=== PATIENT | male | born 1965 | race Two or more races ===

== ENCOUNTER 2024-06-20 22:40 | Inpatient (IN) | payer MEDICARE, MEDICAID ==
[~2024-06-20] VITALS: Ht 182.9 cm; Wt 103.3 kg
[2024-06-21] VITALS (33 sets, daily range): BP systolic 78–151; BP diastolic 44–85; PULSE 79–112; RESP 11–26; TEMP 97.6; O2SAT 89–100
--- NOTE | 2024-06-21 00:32 | DVH ---
EXAM: CT HEAD WITHOUT CONTRAST INDICATION: gen weak TECHNIQUE: CT of the head without intravenous contrast. Radiation Dose : 1. Head: CT Dose: CTDI volume is 51.87 mGy. Dose-length product is 1039.14 mGy*cm The dose indicators for CT are the volume Computed Tomography (CT) Dose Index (CTDIvol) and the Dose Length Product (DLP), and are measured in units of mGy and mGy-cm, respectively. These indicators are not patient dose, but values generated from the CT scanner acquisition factors. The report includes radiation exposure data for exposures received during this examination. COMPARISON: None FINDINGS: There is no evidence of acute intracranial hemorrhage, extra-axial collection, mass effect, midline s hift, herniation or hydrocephalus. Increased prominence of the ventricles, sulci and cisterns is consistent with sequelae of atrophic co rtical volume loss. The healy-white differentiation is intact. Moderate diffuse confluent periventricular and subcortical white matter hypoattenuation is nonspecifi c but may be related to small vessel ischemic disease. The visualized paranasal sinuses and mastoid air cells are clear. The surrounding soft tissues and osseous structures are unremarkable. IMPRESSION: 1. No acute intracranial abnormality. 2. Chronic sequelae of small vessel ischemic disease and atrophic cortical volume loss. Radiation optimization: All CT scans at this facility use at least one of these dose optimization tariq hniques: automated exposure control mA and/or kV adjustment per patient size (includes targeted exam s where dose is matched to clinical indication) or iterative reconstruction.
[2024-06-21 01:09] LABS: Albumin 4.3 g/dL (3.2-4.8); Anion Gap 16 (5-15); Calcium 9.3 mg/dL (8.7-10.4); Chloride 98 mmol/L (98-107); Glucose 97 mg/dL (74-106)
[2024-06-21 01:11] LABS: Blood Urea Nitrogen 74 mg/dL (9-23); Carbon Dioxide 18 mmol/L (20-31); Sodium 132 mmol/L (136-145)
[2024-06-21] MEDS: NEOMYCIN-BACITRACIN-POLYM UNITDOSE PKG TOP OINT TOP ONE (01:11)
[2024-06-21 01:12] LABS: Alanine Aminotransferase < 9 U/L (7-40); Alkaline Phosphatase 405 U/L (46-116); Aspartate Aminotransferase 8 U/L (13-40); Bilirubin, Total 0.2 mg/dL (0.2-1.0)
[2024-06-21 01:31] LABS: Basophils # (auto) 0.1 10 ^3/uL (0-0.2); Basophils % (auto) 1.2 % (0.0-2.0); Eosinophils # (auto) 0.4 10 ^3/uL (0-0.8); Eosinophils % (auto) 4.1 % (0.0-7.0); Hematocrit 59.3 % (41.0-53.0); Hemoglobin 19.5 g/dL (13.5-17.5); Lymphocytes # (auto) 1.4 10 ^3/uL (0.4-5.4); Lymphocytes % (auto) 15.7 % (10.0-50.0); Mean Corpuscular Hemoglobin 27.8 pg (28.0-32.0); Mean Corpuscular Hgb Conc. 32.9 g/dL (32.0-36.0); Mean Corpuscular Volume 84.6 fL (80.0-100.0); Monocytes % (auto) 11.8 % (0.0-12.0); Neutrophils # (auto) 5.9 10 ^3/uL (1.6-8.6); Neutrophils % (auto) 67.2 % (37.0-80.0); Nucleated Red Blood Cells % 0.9 %; Platelet Count (auto) 133 10^3/uL (140-450); Red Blood Cells 7.01 10^6/uL (4.5-5.90); Red Cell Distribution Width 18.6 % (11.8-14.3); White Blood Cell 8.8 10^3/uL (4.4-10.8)
[2024-06-21 01:56] LABS: Large Platelets FEW; Platelet Estimate Decreased
--- NOTE | 2024-06-21 02:05 | ED.PDOC ---
History of Present Illness HPI Comments 58-year-old male complaining of generalized weakness. States started this afternoon. He went to stand and make himself food but he could not get up. States he felt some mild weakness yesterday but it was not as bad today. States since this afternoon he has been not been able to bear weight and stand up on his own. Patient was report a history of chronic kidney failure and does receive dialysis two days he was in Saturdays. Chief Complaint: General Weakness Time Seen by MD: 23:19 Reviewed Notes: Nurses Notes Information Source: Patient Mode of Arrival: EMS Past Medical History PAST MEDICAL HISTORY: DM, ESRD Constitutional: reports: fatigue, weakness; denies: chills, diaphoresis, fever, malaise, sweats, others EENTM: denies: blurred vision, double vision, ear bleeding, ear discharge, ear drainage, ear pain, ear ringing, eye pain, eye redness, hearing loss, mouth pain, mouth swelling, nasal discharge, nose bleeding, nose congestion, nose pain, photophobia, tearing, throat pain, throat swelling, voice changes, others Respiratory: denies: cough, hemoptysis, orthopnea, SOB at rest, shortness of breath, SOB with excertion, stridor, wheezing, others Cardiovascular: denies: chest pain, dizzy spells, diaphoresis, Dyspnea on exertion, edema, irregular heart beat, left arm pain, lightheadedness, palpit ations, PND, syncope, others Gastrointestinal: denies: abdomen distended, abdominal pain, blood streaked b owels, constipated, diarrhea, dysphagia, difficulty swallowing, hematemesis, melena, nausea, poor appetite, poor fluid intake, rectal bleeding, rectal pain, vomiting, others Genitourinary: denies: burning, dysuria, flank pain, frequency, hematuria, incontinence, penile discharge, penile sore, pain, testicle pain, testicle swelling, urgency, others Neurological: denies: dizziness, fainting, headache, left sided numbness, left sided weakness, numbness, paresthesia, pre-existing deficit, right sided numbness, right sided weakness, seizure, speech problems, tingling, tremors, weakness, others Musculoskeletal: denies: back pain, gout, joint pain, joint swelling, muscle pain, muscle stiffness, neck pain, others Integumetry: denies: bruises, change in color, change in hair/nails, dryness, laceration, lesions, lumps, rash, wounds, others Allergic/Immunocompromised: denies: Difficulty Healing, Frequent Infections, Hives, Itching, others Hematologic/Lymphatic: denies: anemia, blood clots, easy bleeding, easy bruisi ng, swollen glands, others Endocrine: denies: excessive hunger, excessive sweating, excessive thirst, exce ssive urination, flushing, intolerance to cold, intolerance to heat, unexplained weight gain, unexplained weight loss, others Psychiatric: denies: anxiety, bipolar disorder, depression, hopeless, panic disorder, schizophrenia, sleepless, suicidal, others Physical Exam General Appearance: Moderate Distress, Obese HEENT: Normal ENT Inspection, Pharynx Normal, TMs Normal Neck: Full Range of Motion, Non-Tender, Normal, Normal Inspection Respiratory: Chest Non-Tender, Lungs Clear, No Accessory Muscle Use, No Respiratory Distress, Normal Breath Sounds Cardiovascular: No Edema, No JVD, No Murmur, No Gallop, Normal Peripheral Pulses, Regular Rate/Rhythm Breast Exam: Deferred Gastrointestinal: No Organomegaly, Normal Bowel Sounds, Soft Genitalia: Deferred Pelvic: Deferred Rectal: Deferred Extremities: Decreased range of motion, Inflammation, No calf tenderness, Swelling Musculoskeletal : Apperance: Normal Neurologic: Alert, eligibility analyst II-XII nml as Tested, No Motor Deficits, Normal Affect, Normal Mood, No Sensory Deficits Cerebellar Function: Normal Reflexes: Normal Skin: Dry, Normal Color, Warm Lymphatic: No Adenopathy Was a procedure done? Was a procedure done?: No Differential Dx Considerations may include: Fluid overload, hyperkalemia, high believe make sure, chronic blood loss anemia, X-Ray, Labs, Meds, VS Vital Signs Date Time Temp Pulse Resp B/P (MAP) Pulse Ox O2 Delivery O2 Flow Rate FiO2 06/21/24 00:25 98.9 99 20 175/94 (121) 96 98.9 06/21/24 00:25 99 20 96 Room Air 06/20/24 22:52 99.0 103 18 175/83 (113) 92 99.0 06/20/24 22:43 103 Lab Test 06/21/24 00:39 Range/Units White Blood Count 8.8 4.4-10.8 10^3/uL Red Blood Count 7.01 H 4.5-5.90 10^6/uL Hemoglobin 19.5 H 13.5-17.5 g/dL Hematocrit 59.3 H 41.0-53.0 % Mean Corpuscular Volume 84.6 80.0-100.0 fL Mean Corpuscular Hemoglobin 27.8 L 28.0-32.0 pg Mean Corpuscular Hemoglobin Concent 32.9 32.0-36.0 g/dL Red Cell Distribution Width 18.6 H 11.8-14.3 % Platelet Count 133 L 140-450 10^3/uL Mean Platelet Volume 8.8 6.9-10.8 fL Neutrophils (%) (Auto) 67.2 37.0-80.0 % Lymphocytes (%) (Auto) 15.7 10.0-50.0 % Monocytes (%) (Auto) 11.8 0.0-12.0 % Eosinophils (%) (Auto) 4.1 0.0-7.0 % Basophils (%) (Auto) 1.2 0.0-2.0 % Neutrophils # (Auto) 5.9 1.6-8.6 10 ^3/uL Lymphocytes # (Auto) 1.4 0.4-5.4 10 ^3/uL Monocytes # (Auto) 1.0 0-1.3 10 ^3/uL Eosinophils # (Auto) 0.4 0-0.8 10 ^3/uL Basophils # (Auto) 0.1 0-0.2 10 ^3/uL Nucleated Red Blood Cells 0.9 % Platelet Estimate Decreased Large Platelets Few Sodium Level 132 L 136-145 mmol/L Potassium Level 7.0 *H 3.5-5.1 mmol/L Chloride Level 98 98-107 mmol/L Carbon Dioxide Level 18 L 20-31 mmol/L Anion Gap 16 H 5-15 Blood Urea Nitrogen 74 H 9-23 mg/dL Creatinine 14.82 *H 0.700-1.30 mg/dL Glomerular Filtration Rate Calc 3 >90 mL/min BUN/Creatinine Ratio 5.0 L 10.0-20.0 Serum Glucose 97 74-106 mg/dL Calcium Level 9.3 8.7-10.4 mg/dL Total Bilirubin 0.2 0.2-1.0 mg/dL Aspartate Amino Transferase (AST) 8 L 13-40 U/L Alanine Aminotransferase (ALT) < 9 7-40 U/L Alkaline Phosphatase 405 H 46-116 U/L Ammonia 27 11-32 umol/L B-Type Natriuretic Peptide 75.92 0-100 pg/mL Total Protein 8.0 5.7-8.2 g/dL Albumin 4.3 3.2-4.8 g/dL Current Medications Medications (Trade) Dose Ordered Sig/Jenae Route Start Time Stop Time Status Last Admin Neomycin/ Polymyxin/ Bacitracin (Triple Antibiotic) 1 applic ONCE ONCE TOP 06/21/24 01:15 06/21/24 01:16 DC 06/21/24 01:11 X-Ray, Labs, Meds, VS Comment Patient will be admitted for end-stage renal disease Recommend dialysis tomorrow Imaging: X-rays and CT scans were reviewed and interpreted by this provider, imaging shows no fractures and no pathological disease. Pending radiology review. Laboratory: Labs reviewed and interpreted by this provider. Patient has prior medical visits reviewed. Med reconciliation performed Vital signs reviewed Time of 1ST Reevaluation: 02:05 Reevaluation 1ST: Unchanged Patient Education/Counseling: Diagnosis, Treatment Family Education/Counseling: Diagnosis, Treatment Departure 1 Departure Time of Disposition: 02:04 Impression: Primary Impression: End stage renal disease Additional Impressions: Hyperkalemia Generalized weakness Disposition: ADMITTED INPATIENT Condition: Stable Discharged With: Self Critical Care Note Critical Care Time?: No Stability Stability form required: No Heart Score Heart Score: Heart Score Response (Comments) Value History N/A 0 EKG N/A 0 Age N/A 0 Risk Factors N/A 0 Troponin N/A 0 Total 0 MILTON GAYTAN June 21, 2024 02:05
[2024-06-21] MEDS: SODIUM BICARB 8.4% 50Meq/50ml SYR INJ IV ONE (04:45)
[2024-06-21] MEDS ORDERED: NITROGLYCERIN 0.4 MG SL TAB SL PRN (04:45)
[2024-06-21] MEDS ORDERED: ONDANSETRON HCL 4 MG/2 ML VIAL IV PRN (04:45)
[2024-06-21] MEDS: InsuLIN REG 1unit/0.01ml Soln (100units/ml) IV ONE ×2 (04:45→21:45)
[2024-06-21] MEDS ORDERED: DEXTROSE (50%) 50ML SYRG IV PRN (04:45)
[2024-06-21] MEDS ORDERED: MORPHINE SULFATE INJ 2 MG/ml SYRG IV PRN (04:45)
[2024-06-21] MEDS: ALBUTEROL SULF 2.5 MG/0.5ML(0.5%) NEB SOLN ONE (04:55)
--- NOTE | 2024-06-21 04:56 | DVHHP2 ---
History of Present Illness Reason for Visit: Generalized weakness History of Present Illness 58-year-old male presents for evaluation of generalized weakness. Patient reports having severe fatigue and weakness for the past one day. Patient was unable to get out of bed to cook breakfast. Denies chest pain or palpitations. He is dialysis dependent was last dialyzed on Thursday. Denies any other acute complaints. Past Medical History Hypertension, diabetes mellitus, end-stage renal disease Past Surgical History Left AV fistula Family History Noncontributory Smoke: No ALCOHOL: none Drugs: None Lives: with Family Review of Systems Review of Systems Review of systems are currently negative otherwise addressed in HPI. Medications Current Medications Medications Dose Ordered Sig/Jenae Route Start Time Stop Time Status Last Admin Dose Admin Sevelamer HCl 800 mg TIDWM PO 06/21/24 08:00 UNV Hydralazine HCl 50 mg Q12HR PO 06/21/24 10:00 UNV Metoprolol Tartrate 25 mg BID PO 06/21/24 10:00 UNV Diagnostic Test (Pha) 1 strip Q6HR 06/21/24 06:00 UNV Insulin Human Regular Q6HR SC 06/21/24 06:00 UNV Dextrose 50 ml UD PRN IV 06/21/24 04:45 UNV Ondansetron HCl 4 mg Q4HP PRN IV 06/21/24 04:45 UNV Nitroglycerin 0.4 mg Q5MINP PRN SL 06/21/24 04:45 UNV Morphine Sulfate 2 mg Q30M PRN IV 06/21/24 04:45 UNV Exam Vital Signs Vital Signs Date Time Temp Pulse Resp B/P (MAP) Pulse Ox O2 Delivery O2 Flow Rate FiO2 06/21/24 00:25 98.9 99 20 175/94 (121) 96 98.9 06/21/24 00:25 Room Air Exam Gen: 58-year-old male in mild distress Skin: Warm, dry, normal color and texture, no rash. HEENT: Normocephalic atraumatic, mucous membranes moist and pink. Neck: Cervical and supraclavicular nodes normal without enlargement, trachea is midline, thyroid gland is normal without masses. Pulmonary: Clear to auscultation and percussion bilaterally. Cardiac: Regular rate and rhythm. No murmur Abdomen: Soft, nontender, nondistended, bowel sounds present all 4 quadrants, no guarding, no rigidity, no organomegaly. Extremities: No cyanosis, clubbing, no edema Neuro: Cranial nerves II through XII grossly intact, normal affect and speech, no focal motor deficits. Labs/Xrays ORDERING PHYSICIAN: MILTON GAYTAN PROCEDURE(s): HWOCT - HEAD WITHOUT CONTRAST REASON: gen zamudio ORDER NUMBER(s): [id number], ACCESSION NUMBER(s): [id number] EXAM: CT HEAD WITHOUT CONTRAST INDICATION: gen zamudio TECHNIQUE: CT of the head without intravenous contrast. Radiation Dose : 1. Head: CT Dose: CTDI volume is 51.87 mGy. Dose-length product is 1039.14 mGy*cm The dose indicators for CT are the volume Computed Tomography (CT) Dose Index (CTDIvol) and the Dose Length Product (DLP), and are measured in units of mGy and mGy-cm, respectively. These indicators are not patient dose, but values generated from the CT scanner acquisition factors. The report includes radiation exposure data for exposures received during this examination. COMPARISON: None FINDINGS: There is no evidence of acute intracranial hemorrhage, extra-axial collection, mass effect, midline shift, herniation or hydrocephalus. Increased prominence of the ventricles, sulci and cisterns is consistent with sequelae of atrophic cortical volume loss. The healy-white differentiation is intact. Moderate diffuse confluent periventricular and subcortical white matter hypoattenuation is nonspecific but may be related to small vessel ischemic disease. The visualized paranasal sinuses and mastoid air cells are clear. The surrounding soft tissues and osseous structures are unremarkable. IMPRESSION: 1. No acute intracranial abnormality. 2. Chronic sequelae of small vessel ischemic disease and atrophic cortical volume loss. Radiation optimization: All CT scans at this facility use at least one of these dose optimization techniques: automated exposure control mA and/or kV adjustment per patient size (includes targeted exams where dose is matched to clinical indication) or iterative reconstruction. Labs Test 06/21/24 00:39 Range/Units White Blood Count 8.8 4.4-10.8 10^3/uL Red Blood Count 7.01 H 4.5-5.90 10^6/uL Hemoglobin 19.5 H 13.5-17.5 g/dL Hematocrit 59.3 H 41.0-53.0 % Mean Corpuscular Volume 84.6 80.0-100.0 fL Mean Corpuscular Hemoglobin 27.8 L 28.0-32.0 pg Mean Corpuscular Hemoglobin Concent 32.9 32.0-36.0 g/dL Red Cell Distribution Width 18.6 H 11.8-14.3 % Platelet Count 133 L 140-450 10^3/uL Mean Platelet Volume 8.8 6.9-10.8 fL Neutrophils (%) (Auto) 67.2 37.0-80.0 % Lymphocytes (%) (Auto) 15.7 10.0-50.0 % Monocytes (%) (Auto) 11.8 0.0-12.0 % Eosinophils (%) (Auto) 4.1 0.0-7.0 % Basophils (%) (Auto) 1.2 0.0-2.0 % Neutrophils # (Auto) 5.9 1.6-8.6 10 ^3/uL Lymphocytes # (Auto) 1.4 0.4-5.4 10 ^3/uL Monocytes # (Auto) 1.0 0-1.3 10 ^3/uL Eosinophils # (Auto) 0.4 0-0.8 10 ^3/uL Basophils # (Auto) 0.1 0-0.2 10 ^3/uL Nucleated Red Blood Cells 0.9 % Platelet Estimate Decreased Large Platelets Few Sodium Level 132 L 136-145 mmol/L Potassium Level 7.0 *H 3.5-5.1 mmol/L Chloride Level 98 98-107 mmol/L Carbon Dioxide Level 18 L 20-31 mmol/L Anion Gap 16 H 5-15 Blood Urea Nitrogen 74 H 9-23 mg/dL Creatinine 14.82 *H 0.700-1.30 mg/dL Glomerular Filtration Rate Calc 3 >90 mL/min BUN/Creatinine Ratio 5.0 L 10.0-20.0 Serum Glucose 97 74-106 mg/dL Calcium Level 9.3 8.7-10.4 mg/dL Total Bilirubin 0.2 0.2-1.0 mg/dL Aspartate Amino Transferase (AST) 8 L 13-40 U/L Alanine Aminotransferase (ALT) < 9 7-40 U/L Alkaline Phosphatase 405 H 46-116 U/L Ammonia 27 11-32 umol/L B-Type Natriuretic Peptide 75.92 0-100 pg/mL Total Protein 8.0 5.7-8.2 g/dL Albumin 4.3 3.2-4.8 g/dL Assessment/Plan Assessment/Plan Assessment End-stage renal disease, dialysis dependent Severe hyperkalemia Diabetes mellitus Accelerated hypertension Plan Admit the patient to [facility] to the hospitalist Hypokalemia protocol Nephrology consultation Resume home medications Continue treatment per orders Total critical care time excluding procedures performed this 55 minutes. Plan discussed with: Patient My Orders Orders - GEREMIAS MANLEY M AGACNP Procedure Category Date Status Time Sevelamer (Renagel) PHA 06/21/24 Logged 08:00 Hydralazine Hcl PHA 06/21/24 Logged Tablet (Apresoline 10:00 Metoprolol Tartrate PHA 06/21/24 Logged Tablet (Lopressor Ta 10:00 Basic Metabolic Panel LAB 06/22/24 Verified 04:00 Consistent DIET 06/21/24 Transmitted Carb(Ccho)Diabetes Breakfast Glucose Blood PHA 06/21/24 Logged (Accu-Chek Comfort 06:00 Insulin R (Human) PHA 06/21/24 Logged (Insulin R) 06:00 Dextrose 50% Syringe PHA 06/21/24 Logged 04:45 Admit ADMIT 06/21/24 Transmitted 04:40 Ondansetron Hcl PHA 06/21/24 Logged (Zofran) 04:45 Condition: Serious EVANGELISTA 06/21/24 In Process 04:40 Bedrest With Bathroom EVNAGELISTA 06/21/24 In Process Privileg 04:40 Nitroglycerin PHA 06/21/24 Logged Sublingual (Ntrostat 04:45 Morphine Sulfate PHA 06/21/24 Logged Injection 04:45 Stat Ekg For Chest EVANGELISTA 06/21/24 In Process Pain 04:40 Notify Md Of Changes EVANGELISTA 06/21/24 In Process From Base 04:40 Rubber Stamps And Dies Supervisor For EVANGELISTA 06/21/24 In Process 24 Hours 04:40 Emergency Dysrhythmia EVANGELISTA 06/21/24 In Process Protocol 04:40 Rhythm Strips Once EVANGELISTA 06/21/24 In Process Every Shift 04:40 Oxygen By Nasal RT 06/21/24 Transmitted Cannula 04:40 *Dr. Hazel Terry -Da CONS 06/21/24 Verified Mayra 04:52 Date of Service: June 21, 2024 Billing Provider: GEREMIAS MANLEY Common Visit Codes: [id number] CARE 30-74 MIN GEREMIAS MANLEY June 21, 2024 04:56
[2024-06-21] MEDS: CALCIUM GLUC 1,000mg/50ml-NS 50 ML IV ONE ×2 (05:58→22:22)
[2024-06-21] MEDS: SODIUM ZIRCONIUM CYCL 10 GM PAK PO ONE ×2 (05:59→22:22)
[2024-06-21] MEDS: InsuLIN REG 1unit/0.01ml Soln (100units/ml) SC SCH (06:00)
[2024-06-21] MEDS: DEXTROSE (50%) 50ML SYRG IV ONE ×2 (06:02→22:21)
[2024-06-21] MEDS: ACCU-CHEK COMFORT CURVE STRIP VI SCH (06:08)
--- NOTE | 2024-06-21 06:18 | ECG ---
[facility] Test Date: 2024-06-20 Test Time: 22:43:05 Pat Name: LULU SCOTT Department: ED Room: 0222T Gender: M Furnace Filler: : 1965 Requested By: EMERGENCY EMERGENCY Order Number: [id number] Reading MD: Abhijit Harris Measurements Intervals Moro Rate: 103 P: 54 MD: 179 QRS: 110 QRSD: 106 T: 28 QT: 347 QTc: 454 Interpretive Statements Sinus tachycardia Left posterior fascicular block Inferior infarct, old Anterior infarct, old Electronically Signed On 06-23-2024 20:48:45 PDT by Abhijit Harris Please click the below link to view image of tracing.
[2024-06-21] MEDS: D5W/SOD CHLO 0.9% 1,000 ML IV ONE (07:30)
[2024-06-21] MEDS: ALBUTEROL SULF 2.5 MG/0.5ML(0.5%) NEB SOLN NEB ONE (07:30)
[2024-06-21] MEDS: SEVELAMER 800 MG TAB PO SCH (08:54)
[2024-06-21] MEDS: METOPROLOL TARTRATE 25 MG TAB PO SCH (09:44)
[2024-06-21] MEDS: hydrALAZINE HCL 25 MG TAB PO SCH (09:44)
--- NOTE | 2024-06-21 15:25 | DVHINCON2 ---
Date of service: June 21, [address] Paulson. Reason for Consultation End-stage renal disease History of Present Illness 58-year-old patient with significant history of end-stage renal disease on hemodialysis Thursday with last dialysis on Thursday who has been compliant with treatment and is unsure of what he ate that caused symptoms of severe generalized weakness unable to ambulate found to have hyperkalemia with seven in the emergency room. He has other comorbidities include hypertension, diabetes type 2, hyperlipidemia, obesity. He denied chest pain orthopnea PND or leg swelling. His last meal was a egg sandwich. Labs revealed hyperkalemia, Hyponatremia. Past Medical History Hypertension, end-stage renal disease, hyperlipidemia, Diabetes type 2. Past Surgical History Dialysis access creation. Allergies: Coded Allergies: NO KNOWN ALLERGIES (Unverified , 06/21/24) Current Medications Current Medications Medications (Trade) Dose Ordered Sig/Jenae Route PRN Reason Start Time Stop Time Status Last Admin Sevelamer HCl (Renagel) 800 mg TIDWM PO 06/21/24 08:00 06/21/24 13:30 Hydralazine HCl (Apresoline Tablet) 50 mg Q12HR PO 06/21/24 10:00 06/21/24 09:44 Metoprolol Tartrate (Lopressor Tablet) 25 mg BID PO 06/21/24 10:00 Hold Diagnostic Test (Pha) (Accu-Chek Comfort Curve T) 1 strip Q6HR 06/21/24 06:00 06/21/24 12:25 Insulin Human Regular (InsuLIN R) Q6HR SC 06/21/24 06:00 06/21/24 12:25 Dextrose 50 ml UD PRN IV Blood Sugar LESS THAN 60 06/21/24 04:45 Ondansetron HCl (Zofran) 4 mg Q4HP PRN IV NAUSEA / VOMITING 06/21/24 04:45 Nitroglycerin (Ntrostat Sublingual) 0.4 mg Q5MINP PRN SL FOR CHEST PAIN 06/21/24 04:45 Morphine Sulfate 2 mg Q30M PRN IV FOR CHEST PAIN 06/21/24 04:45 Norepinephrine Bitartrate 250 ml @ 3.75 mls/hr Q24H IV 06/21/24 13:00 Acetaminophen (Tylenol Tablet) 650 mg Q4HPRN PRN PO MODERATE PAIN (4-6 PAIN SCALE) 06/21/24 13:00 Family History Unable to obtain patient does not recall Social History Denies smoking alcohol or drug abuse Review of Systems HEENT: Oral mucosa dry Neck no JVD Cardiovascular: Denies for chest pain denies orthopnea or PND Respiratory: Denies cough or shortness of breath Gastrointestinal: Denies for nausea vomiting Musculoskeletal: Denies myalgias Neurological: Denies focal weakness Dermatological: Denies any rash Positive for generalized weakness The rest of the review of systems were reviewed pertinent positives and pertinent negatives are as per HPI up to 12 points review of systems H&P Exam Vital Signs/I&O Vital Sign Date Time Temp Pulse Resp B/P (MAP) Pulse Ox O2 Delivery O2 Flow Rate FiO2 06/21/24 14:45 89 18 139/85 (103) 95 06/21/24 10:00 98.1 98.1 06/21/24 07:30 Simple Mask* 6 50 Physical Exam HEENT: No evidence of JVD, no oral ulcers. Pulmonary: Lungs are clear on auscultation bilaterally Cardiovascular S1-S2, no S3 or S4 Abdomen: Bowel sounds positive, soft no rebound tenderness Skin: No rash Neurological: Alert, oriented, no focal weakness Dialysis access with positive bruit and thrill Labs/Diagnostic Data Labs/Diagnostic Data Laboratory Tests Test 06/21/24 12:20 06/21/24 08:37 06/21/24 08:09 06/21/24 06:07 Range/Units POC Glucose 157 H 241 H 178 H 70-106 mg/dl Potassium Level 5.2 H 3.5-5.1 mmol/L Test 06/21/24 02:45 06/21/24 00:39 Range/Units White Blood Count 8.8 4.4-10.8 10^3/uL Red Blood Count 7.01 H 4.5-5.90 10^6/uL Hemoglobin 19.5 H 13.5-17.5 g/dL Hematocrit 59.3 H 41.0-53.0 % Mean Corpuscular Volume 84.6 80.0-100.0 fL Mean Corpuscular Hemoglobin 27.8 L 28.0-32.0 pg Mean Corpuscular Hemoglobin Concent 32.9 32.0-36.0 g/dL Red Cell Distribution Width 18.6 H 11.8-14.3 % Platelet Count 133 L 140-450 10^3/uL Mean Platelet Volume 8.8 6.9-10.8 fL Neutrophils (%) (Auto) 67.2 37.0-80.0 % Lymphocytes (%) (Auto) 15.7 10.0-50.0 % Monocytes (%) (Auto) 11.8 0.0-12.0 % Eosinophils (%) (Auto) 4.1 0.0-7.0 % Basophils (%) (Auto) 1.2 0.0-2.0 % Neutrophils # (Auto) 5.9 1.6-8.6 10 ^3/uL Lymphocytes # (Auto) 1.4 0.4-5.4 10 ^3/uL Monocytes # (Auto) 1.0 0-1.3 10 ^3/uL Eosinophils # (Auto) 0.4 0-0.8 10 ^3/uL Basophils # (Auto) 0.1 0-0.2 10 ^3/uL Nucleated Red Blood Cells 0.9 % Platelet Estimate Decreased Large Platelets Few Sodium Level 132 L 136-145 mmol/L Potassium Level 7.0 *H 3.5-5.1 mmol/L Chloride Level 98 98-107 mmol/L Carbon Dioxide Level 18 L 20-31 mmol/L Anion Gap 16 H 5-15 Blood Urea Nitrogen 74 H 9-23 mg/dL Creatinine 14.82 *H 0.700-1.30 mg/dL Glomerular Filtration Rate Calc 3 >90 mL/min BUN/Creatinine Ratio 5.0 L 10.0-20.0 Serum Glucose 97 74-106 mg/dL Calcium Level 9.3 8.7-10.4 mg/dL Total Bilirubin 0.2 0.2-1.0 mg/dL Aspartate Amino Transferase (AST) 8 L 13-40 U/L Alanine Aminotransferase (ALT) < 9 7-40 U/L Alkaline Phosphatase 405 H 46-116 U/L Ammonia 27 11-32 umol/L B-Type Natriuretic Peptide 75.92 0-100 pg/mL Total Protein 8.0 5.7-8.2 g/dL Albumin 4.3 3.2-4.8 g/dL Assessment Assessment: 1. End-stage renal disease on hemodialysis TTS 2. Hyperkalemia. 3. Hypertension 4. Anemia 5. hyperphosphatemia 6. generalized weakness Plan: stat hemodialysis to correct hyperkalemia low-potassium diet, renal diet fluid restriction less than 1 L per day candy for goal hemoglobin of 10 to 11 g per dL resume antihypertensive med resume phosphate binders generalized weakness likely related to severe hyperkalemia. thank you very much for allowing us to participate in the care of this patient Plan discussed with: Patient EDER MASON MD June 21, 2024 15:25
[2024-06-21] MEDS: NOREPINEPHRINE 8 MG/250ML KIT 250 ML IV SCH (19:22)
[2024-06-21] MEDS: traMADol HCL 50 MG TAB PO ONE (21:30)
[2024-06-21] MEDS: SODIUM BICARB 8.4% 50Meq/50ml SYR Vial IV ONE (22:22)
[2024-06-22] VITALS (9 sets, daily range): BP systolic 123–167; BP diastolic 62–88; PULSE 90–102; RESP 16–20; TEMP 97.5–98.1; O2SAT 90–100
[2024-06-22] MEDS: ACETAMINOPHEN 325 MG TAB PO PRN (01:29)
[2024-06-22] MEDS ORDERED: SEVE800T8 PO (03:27)
[2024-06-22] MEDS ORDERED: LORA-1123 PO (03:27)
[2024-06-22] MEDS ORDERED: AML5T PO (03:27)
[2024-06-22] MEDS ORDERED: CYCL-611 PO (03:27)
[2024-06-22] MEDS ORDERED: HYDR-4072 PO (03:27)
[2024-06-22] MEDS ORDERED: OMEP1CAP70 PO (03:27)
[2024-06-22] MEDS ORDERED: INSU1INJ19 SC (03:27)
[2024-06-22] MEDS ORDERED: ZOLP10TA6 PO (03:27)
[2024-06-22] MEDS ORDERED: HYDR100T10 PO (03:27)
[2024-06-22 08:07] LABS: Anion Gap 14 (5-15); Carbon Dioxide 23 mmol/L (20-31)
[2024-06-22 08:08] LABS: Calcium 9.2 mg/dL (8.7-10.4)
[2024-06-22 08:13] LABS: BUN/Creatinine Ratio 4.3 (10.0-20.0)
[2024-06-22 08:20] LABS: Blood Urea Nitrogen 52 mg/dL (9-23); Chloride 95 mmol/L (98-107); Glucose 159 mg/dL (74-106); Potassium 5.2 mmol/L (3.5-5.1); Sodium 132 mmol/L (136-145)
[2024-06-22] MEDS: SODIUM ZIRCONIUM CYCL 10 GM PAK PO ONE (13:07)
[2024-06-22] MEDS ORDERED: SODIUM CHL 0.9% 1000 ML BAG XX ONE (15:30)
--- NOTE | 2024-06-22 15:30 | DVHPN2 ---
Progress Note - Dictate Date Seen: June 22, 2024 Medical Necessity Reason Pt with a Central, PICC or Fol: No Subjective Patient feels better. Generalized weakness is still there but mild vital signs Vital Sign Date Time Temp Pulse Resp B/P (MAP) Pulse Ox O2 Delivery O2 Flow Rate FiO2 06/22/24 10:18 123/62 06/22/24 08:00 102 20 97 Nasal Cannula* 2 28 06/22/24 05:00 98.0 98.0 Total Intake and Output 06/21/24 06/21/24 06/22/24 15:00 23:00 07:00 Intake Total 240 ml 50 ml Output Total 0 ml 0 ml Balance 240 ml 50 ml medications Current Medications Medications Dose Ordered Sig/Jenae Route Start Time Stop Time Status Last Admin Dose Admin Sevelamer HCl 800 mg TIDWM PO 06/21/24 08:00 06/22/24 12:00 800 MG Hydralazine HCl 50 mg Q12HR PO 06/21/24 10:00 06/22/24 10:18 50 MG Metoprolol Tartrate 25 mg BID PO 06/21/24 10:00 Hold Diagnostic Test (Pha) 1 strip Q6HR 06/21/24 06:00 06/22/24 11:20 1 STRIP Insulin Human Regular Q6HR SC 06/21/24 06:00 06/22/24 06:16 4 UNITS Dextrose 50 ml UD PRN IV 06/21/24 04:45 Ondansetron HCl 4 mg Q4HP PRN IV 06/21/24 04:45 Nitroglycerin 0.4 mg Q5MINP PRN SL 06/21/24 04:45 Morphine Sulfate 2 mg Q30M PRN IV 06/21/24 04:45 Norepinephrine Bitartrate 250 ml @ 3.75 mls/hr Q24H IV 06/21/24 13:00 Acetaminophen 650 mg Q4HPRN PRN PO 06/21/24 13:00 06/22/24 13:15 650 MG Acetaminophen/ Hydrocodone Bitart 1 tab Q6HPRN PRN PO 06/21/24 20:15 Hold Hydralazine HCl 10 mg Q6HP PRN IV 06/22/24 12:15 objective HEENT: No evidence of JVD, no oral ulcers. Pulmonary: Lungs are clear on auscultation bilaterally Cardiovascular S1-S2, no S3 or S4 Abdomen: Bowel sounds positive, soft no rebound tenderness Skin: No rash Neurological: Alert, oriented, no focal weakness Extremities: Trace edema laboratory and microbiology Laboratory Tests 06/22/24 07:33 06/21/24 00:39 Test 06/22/24 07:33 Range/Units Serum Glucose 159 H 74-106 mg/dL Assessment/Plan Assessment: 1. End-stage renal disease on hemodialysis TTS 2. Hyperkalemia. 3. Hypertension 4. Anemia 5. hyperphosphatemia 6. generalized weakness Plan: Dialysis was completed yesterday. Who start dialysis today for hyperkalemia was called Continue TTS schedule for dialysis with a inpatient or outpatient. Lokelma p.r.n. low-potassium diet, renal diet fluid restriction less than 1 L per day candy for goal hemoglobin of 10 to 11 g per dL resume antihypertensive med resume phosphate binders generalized weakness likely related to severe hyperkalemia. thank you very much for allowing us to participate in the care of this patient Plan discussed with: Patient EDER MASON MD June 22, 2024 15:30
--- NOTE | 2024-06-22 22:40 | DVHPN2 ---
Subjective The patient is seen and examined at bedside. The patient very confused today and tired. Patient remained weak Reviewed: Care Plan, H&P, Labs, Medications, Previous Orders, Radiology Changes from previous H/P or p: No Changes Objective Vitals Vital Signs Date Time Temp Pulse Resp B/P (MAP) Pulse Ox O2 Delivery O2 Flow Rate FiO2 06/22/24 22:23 120/73 06/22/24 20:00 91 Room Air* 0 21 06/22/24 17:00 97.7 94 16 97.7 Intake/Output Intake and Output 06/22/24 07:00 Intake Total 290 ml Output Total 0 ml Balance 290 ml Intake Oral 240 ml IV Total 50 ml Output Urine Total 0 ml Stool Total 0 ml General Appearance: Alert, Cooperative, No acute distress HEENT: Atraumatic, PERRLA, EOMI, Mucous membr. moist/pink Neck: Supple Lungs: Clear to auscultation, Normal air movement Cardiovascular: Regular rate, Normal S1, Normal S2, No murmurs, Gallops, Rubs Abdomen: Normal bowel sounds, Soft, No tenderness Neuro: Cranial nerves 3-12 NL Psych/Mental Status: Mental status NL Medications Current Medications Medications Dose Ordered Sig/Jenae Route Start Time Stop Time Status Last Admin Dose Admin Sevelamer HCl 800 mg TIDWM PO 06/21/24 08:00 06/22/24 12:00 800 MG Hydralazine HCl 50 mg Q12HR PO 06/21/24 10:00 06/22/24 22:23 50 MG Metoprolol Tartrate 25 mg BID PO 06/21/24 10:00 Hold Diagnostic Test (Pha) 1 strip Q6HR 06/21/24 06:00 06/22/24 17:29 1 STRIP Insulin Human Regular Q6HR SC 06/21/24 06:00 06/22/24 17:30 3 UNITS Dextrose 50 ml UD PRN IV 06/21/24 04:45 Ondansetron HCl 4 mg Q4HP PRN IV 06/21/24 04:45 Nitroglycerin 0.4 mg Q5MINP PRN SL 06/21/24 04:45 Morphine Sulfate 2 mg Q30M PRN IV 06/21/24 04:45 Norepinephrine Bitartrate 250 ml @ 3.75 mls/hr Q24H IV 06/21/24 13:00 Acetaminophen 650 mg Q4HPRN PRN PO 06/21/24 13:00 06/22/24 13:15 650 MG Acetaminophen/ Hydrocodone Bitart 1 tab Q6HPRN PRN PO 06/21/24 20:15 Hold Hydralazine HCl 10 mg Q6HP PRN IV 06/22/24 12:15 Laboratory Results Laboratory Tests 06/21/24 00:39 06/22/24 07:33 Chemistry Test 06/22/24 07:33 Calcium Level 9.2 mg/dL (8.7-10.4) Labs and/or images reviewed: Labs reviewed by me Assessment/Plan Assessment/Plan End-stage renal disease, dialysis dependent Severe hyperkalemia Diabetes mellitus Accelerated hypertension Continuing current management. Waiting for machine ii cutter to see the patient. Continuing with low came for hyperkalemia Continuing sliding scale insulin Continuing hypertensive medication IV hydralazine p.r.n. for systolic greater than 160 This medical document was created using an electronic medical record system with [employer] direct computerized dictation system. Although this document has been carefully reviewed, there may still be some phonetic and typographical errors. These areas are purely typographical due to imperfections of the software programs, and do not reflect any compromise in the patient's medical care. Plan discussed with: Patient My Orders Orders - LAURY ANTHONY MD Procedure Category Date Status Time Mrsa Screen ANGEL 06/22/24 In Process 07:07 Hydralazine Injection PHA 06/22/24 In Process (Apresoline Inject 12:15 Apply: EVANGELISTA 06/22/24 In Process 11:28 Date of Service: June 22, 2024 Billing Provider: LAURY ANTHONY MD Common Visit Codes: [id number] INP/OBS CARE(HIGH) LAURY ANTHONY MD June 22, 2024 22:40
[2024-06-23] VITALS (8 sets, daily range): BP systolic 96–180; BP diastolic 55–106; PULSE 93–111; RESP 16–20; TEMP 97.5–99.1; O2SAT 92–97
[2024-06-23] MEDS: hydrALAZINE HCL 20 MG/ML VL IV PRN (00:56)
[2024-06-23] MEDS: GABAPENTIN 100 MG CAP PO ONE (05:05)
--- NOTE | 2024-06-23 11:31 | DVHPN2 ---
Subjective The patient is seen and examined at bedside. The patient very confused today and tired. Patient remained weak Reviewed: Care Plan, H&P, Labs, Medications, Previous Orders, Radiology Changes from previous H/P or p: No Changes Objective Vitals Vital Signs Date Time Temp Pulse Resp B/P (MAP) Pulse Ox O2 Delivery O2 Flow Rate FiO2 06/23/24 09:00 98.3 98 16 131/55 (80) 94 98.3 06/23/24 08:00 Nasal Cannula* 2 28 Intake/Output Intake and Output 06/23/24 07:00 Intake Total 1600 ml Output Total 0 ml Balance 1600 ml Intake Oral 1600 ml Output Urine Total 0 ml Stool Total 0 ml # Bowel Movements 10 General Appearance: Alert, Cooperative, No acute distress HEENT: Atraumatic, PERRLA, EOMI, Mucous membr. moist/pink Neck: Supple Lungs: Clear to auscultation, Normal air movement Cardiovascular: Regular rate, Normal S1, Normal S2, No murmurs, Gallops, Rubs Abdomen: Normal bowel sounds, Soft, No tenderness Neuro: Cranial nerves 3-12 NL Psych/Mental Status: Mental status NL Medications Current Medications Medications Dose Ordered Sig/Jenae Route Start Time Stop Time Status Last Admin Dose Admin Sevelamer HCl 800 mg TIDWM PO 06/21/24 08:00 06/22/24 12:00 800 MG Hydralazine HCl 50 mg Q12HR PO 06/21/24 10:00 06/22/24 22:23 50 MG Metoprolol Tartrate 25 mg BID PO 06/21/24 10:00 Hold Diagnostic Test (Pha) 1 strip Q6HR 06/21/24 06:00 06/23/24 05:24 1 STRIP Insulin Human Regular Q6HR SC 06/21/24 06:00 06/23/24 00:18 8 UNITS Dextrose 50 ml UD PRN IV 06/21/24 04:45 Ondansetron HCl 4 mg Q4HP PRN IV 06/21/24 04:45 Nitroglycerin 0.4 mg Q5MINP PRN SL 06/21/24 04:45 Morphine Sulfate 2 mg Q30M PRN IV 06/21/24 04:45 Norepinephrine Bitartrate 250 ml @ 3.75 mls/hr Q24H IV 06/21/24 13:00 Acetaminophen 650 mg Q4HPRN PRN PO 06/21/24 13:00 06/23/24 04:12 650 MG Acetaminophen/ Hydrocodone Bitart 1 tab Q6HPRN PRN PO 06/21/24 20:15 Hold Hydralazine HCl 10 mg Q6HP PRN IV 06/22/24 12:15 06/23/24 00:56 10 MG Laboratory Results Laboratory Tests 06/21/24 00:39 06/22/24 07:33 Labs and/or images reviewed: Labs reviewed by me Assessment/Plan Assessment/Plan End-stage renal disease, dialysis dependent Severe hyperkalemia Diabetes mellitus Accelerated hypertension Continuing current management. Waiting for hog confinement system manager to see the patient. Continuing with low came for hyperkalemia Continuing sliding scale insulin Continuing hypertensive medication IV hydralazine p.r.n. for systolic greater than 160 This medical document was created using an electronic medical record system with [employer] direct computerized dictation system. Although this document has been carefully reviewed, there may still be some phonetic and typographical errors. These areas are purely typographical due to imperfections of the software programs, and do not reflect any compromise in the patient's medical care. Plan discussed with: Patient My Orders Orders - LAURY ANTHONY MD Procedure Category Date Status Time Hydralazine Injection PHA 06/22/24 In Process (Apresoline Inject 12:15 Apply: EVANGELISTA 06/22/24 In Process 11:28 Date of Service: June 23, 2024 Billing Provider: LAURY ANTHONY MD Common Visit Codes: [id number] INP/OBS CARE(HIGH) LAURY ANTHONY MD June 23, 2024 11:31
[2024-06-23] MEDS: HYDROcodone-ACET 5/325MG TAB PO PRN (12:02)
--- NOTE | 2024-06-23 17:52 | DVHPN2 ---
Progress Note - Dictate Date Seen: June 23, 2024 Medical Necessity Reason Pt with a Central, PICC or Fol: No Subjective Dialysis was done today complains of generalized low back pain vital signs Vital Sign Date Time Temp Pulse Resp B/P (MAP) Pulse Ox O2 Delivery O2 Flow Rate FiO2 06/23/24 16:50 97.9 95 18 142/80 (100) 92 97.9 06/23/24 08:00 Nasal Cannula* 2 28 Total Intake and Output 06/22/24 06/22/24 06/23/24 15:00 23:00 07:00 Intake Total 1200 ml 400 ml Output Total 0 ml Balance 1200 ml 400 ml medications Current Medications Medications Dose Ordered Sig/Jenae Route Start Time Stop Time Status Last Admin Dose Admin Sevelamer HCl 800 mg TIDWM PO 06/21/24 08:00 06/23/24 12:02 800 MG Hydralazine HCl 50 mg Q12HR PO 06/21/24 10:00 06/22/24 22:23 50 MG Metoprolol Tartrate 25 mg BID PO 06/21/24 10:00 Hold Diagnostic Test (Pha) 1 strip Q6HR 06/21/24 06:00 06/23/24 11:51 1 STRIP Insulin Human Regular Q6HR SC 06/21/24 06:00 06/23/24 11:51 2 UNITS Dextrose 50 ml UD PRN IV 06/21/24 04:45 Ondansetron HCl 4 mg Q4HP PRN IV 06/21/24 04:45 Nitroglycerin 0.4 mg Q5MINP PRN SL 06/21/24 04:45 Morphine Sulfate 2 mg Q30M PRN IV 06/21/24 04:45 Norepinephrine Bitartrate 250 ml @ 3.75 mls/hr Q24H IV 06/21/24 13:00 Acetaminophen 650 mg Q4HPRN PRN PO 06/21/24 13:00 06/23/24 15:29 650 MG Acetaminophen/ Hydrocodone Bitart 1 tab Q6HPRN PRN PO 06/21/24 20:15 06/23/24 12:02 1 TAB Hydralazine HCl 10 mg Q6HP PRN IV 06/22/24 12:15 06/23/24 00:56 10 MG objective HEENT: No evidence of JVD, no oral ulcers. Pulmonary: Lungs are clear on auscultation bilaterally Cardiovascular S1-S2, no S3 or S4 Abdomen: Bowel sounds positive, soft no rebound tenderness Skin: No rash Neurological: Alert, oriented, no focal weakness Extremities: Trace edema laboratory and microbiology Laboratory Tests 06/22/24 07:33 06/21/24 00:39 Test 06/22/24 07:33 Range/Units Serum Glucose 159 H 74-106 mg/dL Assessment/Plan Assessment: 1. End-stage renal disease on hemodialysis TTS 2. Hyperkalemia. 3. Hypertension 4. Anemia 5. hyperphosphatemia 6. generalized weakness Plan: Dialysis was completed today Continue TTS schedule for dialysis with a inpatient or outpatient. Lokelma p.r.n. low-potassium diet, renal diet fluid restriction less than 1 L per day candy for goal hemoglobin of 10 to 11 g per dL resume antihypertensive med resume phosphate binders Patient cleared from Nephrology to go home thank you very much for allowing us to participate in the care of this patient Plan discussed with: Patient EDER MASON MD June 23, 2024 17:52
[2024-06-24 01:00] VITALS: BP 129/64; PULSE 93; RESP 17; TEMP 98.1; O2SAT 95
[2024-06-24 05:00] VITALS: BP 142/64; PULSE 89; RESP 17; TEMP 98; O2SAT 96
[2024-06-24 08:10] VITALS: PULSE 96
[2024-06-24 09:26] VITALS: BP 160/81; PULSE 95; RESP 16; TEMP 97.7; O2SAT 93
[2024-06-24 12:04] LABS: Basophils # (auto) 0.1 10 ^3/uL (0-0.2); Eosinophils # (auto) 0.4 10 ^3/uL (0-0.8); Neutrophils # (auto) 2.3 10 ^3/uL (1.6-8.6); Red Cell Distribution Width 18.5 % (11.8-14.3); White Blood Cell 4.7 10^3/uL (4.4-10.8)
[2024-06-24 12:06] LABS: Basophils % (auto) 2.2 % (0.0-2.0); Eosinophils % (auto) 8.7 % (0.0-7.0); Hematocrit 53.9 % (41.0-53.0); Hemoglobin 17.1 g/dL (13.5-17.5); Lymphocytes % (auto) 21.8 % (10.0-50.0); Mean Corpuscular Hemoglobin 27.1 pg (28.0-32.0); Mean Corpuscular Hgb Conc. 31.8 g/dL (32.0-36.0); Mean Corpuscular Volume 85.2 fL (80.0-100.0); Monocytes # (auto) 0.8 10 ^3/uL (0-1.3); Monocytes % (auto) 17.4 % (0.0-12.0); Neutrophils % (auto) 49.9 % (37.0-80.0); Nucleated Red Blood Cells % 0.7 %; Platelet Count (auto) 121 10^3/uL (140-450); Red Blood Cells 6.33 10^6/uL (4.5-5.90)
[2024-06-24 12:13] LABS: Anion Gap 13 (5-15); Carbon Dioxide 26 mmol/L (20-31); Chloride 93 mmol/L (98-107); Potassium 5.2 mmol/L (3.5-5.1); Sodium 132 mmol/L (136-145)
[2024-06-24 12:14] LABS: Calcium 8.9 mg/dL (8.7-10.4)
[2024-06-24 12:19] LABS: BUN/Creatinine Ratio 3.5 (10.0-20.0)
--- NOTE | 2024-06-24 12:19 | DVHDS2 ---
Discharge Summary Date of Admission June 21, 2024 at 04:40 Date of Discharge: June 24, 2024 Admitting Diagnosis End-stage renal disease, dialysis dependent Severe hyperkalemia Diabetes mellitus Accelerated hypertension Labs/Diagnostic Data: Laboratory Results Test 06/24/24 11:44 06/24/24 11:26 06/21/24 02:45 06/21/24 00:39 White Blood Count 4.7 10^3/uL (4.4-10.8) Red Blood Count 6.33 10^6/uL (4.5-5.90) Hemoglobin 17.1 g/dL (13.5-17.5) Hematocrit 53.9 % (41.0-53.0) Mean Corpuscular Volume 85.2 fL (80.0-100.0) Mean Corpuscular Hemoglobin 27.1 pg (28.0-32.0) Mean Corpuscular Hemoglobin Concent 31.8 g/dL (32.0-36.0) Red Cell Distribution Width 18.5 % (11.8-14.3) Platelet Count 121 10^3/uL (140-450) Mean Platelet Volume 8.7 fL (6.9-10.8) Neutrophils (%) (Auto) 49.9 % (37.0-80.0) Lymphocytes (%) (Auto) 21.8 % (10.0-50.0) Monocytes (%) (Auto) 17.4 % (0.0-12.0) Eosinophils (%) (Auto) 8.7 % (0.0-7.0) Basophils (%) (Auto) 2.2 % (0.0-2.0) Neutrophils # (Auto) 2.3 10 ^3/uL (1.6-8.6) Lymphocytes # (Auto) 1.0 10 ^3/uL (0.4-5.4) Monocytes # (Auto) 0.8 10 ^3/uL (0-1.3) Eosinophils # (Auto) 0.4 10 ^3/uL (0-0.8) Basophils # (Auto) 0.1 10 ^3/uL (0-0.2) Nucleated Red Blood Cells 0.7 % Sodium Level 132 mmol/L (136-145) Potassium Level 5.2 mmol/L (3.5-5.1) Chloride Level 93 mmol/L (98-107) Carbon Dioxide Level 26 mmol/L (20-31) Anion Gap 13 (5-15) Calcium Level 8.9 mg/dL (8.7-10.4) POC Glucose 225 mg/dl (70-106) Hepatitis B Surface Antigen Negative (Negative) Platelet Estimate Decreased Large Platelets Few Total Bilirubin 0.2 mg/dL (0.2-1.0) Aspartate Amino Transferase (AST) 8 U/L (13-40) Alanine Aminotransferase (ALT) < 9 U/L (7-40) Alkaline Phosphatase 405 U/L (46-116) Ammonia 27 umol/L (11-32) B-Type Natriuretic Peptide 75.92 pg/mL (0-100) Total Protein 8.0 g/dL (5.7-8.2) Albumin 4.3 g/dL (3.2-4.8) Other Laboratory Tests 06/24/24 11:44 Brief Hx & Hospital Course: This is a 58 years old male come into emergency department because of generalized weakness and shortness for breath. The patient had severe fatigue and weakness that he can he can not get out of bed. He missed dialysis because of the weakness. The patient came to emergency department and was admitted. The patient had dialysis in the hospital. The patient weakness improved. The patient is able to get up and ambulate. The shortness for breath improved. The hypertension improved. I am going to discharge him home today. Advised the patient to follow up with primary care physician 1-2 weeks. Continuing hemodialysis per schedule. Activity as tolerated. Diet renal diet. Physical exam: HEENT: Normocephalic atraumatic pupils equal react to light and accommodation. Extraocular muscles intact, conjunctiva pink, oropharynx moist, no thrush, no exudate. Lymphatic: No lymphadenopathy Cardiovascular exam: S1, S2 was heard. No murmurs, rubs, gallops Lung: Clear on auscultation bilaterally, no wheeze, rale, rhonchi. GI: Abdominal soft, nondistended, nontenderness, positive bowel sounds. Extremity: No crepitus, cyanosis, edema. Pedal pulses present bilateral. Full range of motion. Skin: Normal turgor, no rash. Psych: Alert, oriented x3. Neurology: No focal deficits, cranial nerve II to XII grossly intact. This medical document was created using an electronic medical record system with [employer] direct computerized dictation system. Although this document has been carefully reviewed, there may still be some phonetic and typographical errors. These areas are purely typographical due to imperfections of the software programs, and do not reflect any compromise in the patient's medical care. Condition at Discharge: Stable Final Diagnosis/Problems List ESRD on HD Volume overload Hyperkalemia Diabetes type 2 Accelerated hypertension Discharge Disposition: Home Discharge Instruct/Medications Diet: Renal Activity: No Restrictions, As Tolerated Follow Up/Referral: pcp 1-2 weeks Medications: resum home meds Discharge Statement: "Patient was advised to return to the ER or call 911 if any headaches, dizziness, shortness of breath, chest pain, abdominal pain, bleeding, fevers, or worsening of medical condition. Patient was counseled about treatment plan, medications, possible side effects, patient�verbalized understanding. All questions were answered to the best of my ability. This discharge took greater then 30 minutes in planning, reviewing documentation, counseling the patient, and discussing with other team members." ASSESSMENT ASSESSMENT Assessment ESRD on HD Volume overload Hyperkalemia Date of Service: June 24, 2024 Billing Provider: LAURY ANTHONY MD Common Visit Codes: [id number] DISCH DAY >30min LAURY ANTHONY MD June 24, 2024 12:19
[2024-06-24 12:20] LABS: Blood Urea Nitrogen 37 mg/dL (9-23); Glucose 160 mg/dL (74-106)
[2024-06-24 12:51] VITALS: BP 149/84; PULSE 80; TEMP 36.5
[2024-06-24 13:18] VITALS: BP 149/84; PULSE 90; RESP 17; TEMP 98; O2SAT 93
[2024-06-24] MEDS: SODIUM ZIRCONIUM CYCL 10 GM PAK PO ONE (14:35)
--- NOTE | 2024-06-24 14:51 | DVHPN2 ---
Progress Note - Dictate Date Seen: June 24, 2024 Medical Necessity Reason Pt with a Central, PICC or Fol: No Subjective Patient denies any acute issues he was dialyzed yesterday. vital signs Vital Sign Date Time Temp Pulse Resp B/P (MAP) Pulse Ox O2 Delivery O2 Flow Rate FiO2 06/24/24 13:18 98.0 90 17 149/84 (105) 93 98.0 06/24/24 08:01 Room Air* 0 21 Total Intake and Output 06/23/24 06/23/24 06/24/24 15:00 23:00 07:00 Intake Total 1300 ml 800 ml Balance 1300 ml 800 ml medications Current Medications Medications Dose Ordered Sig/Jenae Route Start Time Stop Time Status Last Admin Dose Admin Sevelamer HCl 800 mg TIDWM PO 06/21/24 08:00 06/24/24 11:45 800 MG Hydralazine HCl 50 mg Q12HR PO 06/21/24 10:00 06/24/24 11:45 50 MG Metoprolol Tartrate 25 mg BID PO 06/21/24 10:00 Hold Diagnostic Test (Pha) 1 strip Q6HR 06/21/24 06:00 06/24/24 11:46 1 STRIP Insulin Human Regular Q6HR SC 06/21/24 06:00 06/24/24 11:43 4 UNITS Dextrose 50 ml UD PRN IV 06/21/24 04:45 Ondansetron HCl 4 mg Q4HP PRN IV 06/21/24 04:45 Nitroglycerin 0.4 mg Q5MINP PRN SL 06/21/24 04:45 Morphine Sulfate 2 mg Q30M PRN IV 06/21/24 04:45 Norepinephrine Bitartrate 250 ml @ 3.75 mls/hr Q24H IV 06/21/24 13:00 Acetaminophen 650 mg Q4HPRN PRN PO 06/21/24 13:00 06/24/24 05:17 650 MG Acetaminophen/ Hydrocodone Bitart 1 tab Q6HPRN PRN PO 06/21/24 20:15 06/24/24 14:31 1 TAB Hydralazine HCl 10 mg Q6HP PRN IV 06/22/24 12:15 06/23/24 00:56 10 MG objective HEENT: No evidence of JVD, no oral ulcers. Pulmonary: Lungs are clear on auscultation bilaterally Cardiovascular S1-S2, no S3 or S4 Abdomen: Bowel sounds positive, soft no rebound tenderness Skin: No rash Neurological: Alert, oriented, no focal weakness Extremities: Trace edema laboratory and microbiology Laboratory Tests 06/24/24 11:44 Test 06/24/24 11:44 Range/Units Serum Glucose 160 H 74-106 mg/dL Assessment/Plan Assessment: 1. End-stage renal disease on hemodialysis TTS 2. Hyperkalemia. 3. Hypertension 4. Anemia 5. hyperphosphatemia 6. generalized weakness Plan: Continue HD TTS Lokelma today and on non dialysis days upon discharge low-potassium diet, renal diet fluid restriction less than 1 L per day candy for goal hemoglobin of 10 to 11 g per dL resume antihypertensive med resume phosphate binders Patient cleared from Nephrology to go home thank you very much for allowing us to participate in the care of this patient Plan discussed with: Patient EDER MASON MD June 24, 2024 14:51
== END 2024-06-24 16:21 | disposition home or self-care (01) | DRG 640 ==
LOC: EDBD 22:40 → ER 22:40 → OVERFLOW 06-21 04:40 → TELE-CENTR 06-22 03:01
PROVIDERS: ADMIT Internal Medicine; ATTEND Internal Medicine
PROC: 5A1D70Z Performance of Urinary Filtration, Intermittent, Less than 6 Hours Per Day (ICD-10-PCS; principal; 2024-06-22)
PROC: 5A1D70Z Performance of Urinary Filtration, Intermittent, Less than 6 Hours Per Day (ICD-10-PCS; 2024-06-23)
DX: E87.5 Hyperkalemia (principal); N18.6 End stage renal disease; I12.0 Hypertensive chronic kidney disease with stage 5 chronic kidney disease or end stage renal disease; E87.70 Fluid overload, unspecified; D63.1 Anemia in chronic kidney disease; E11.22 Type 2 diabetes mellitus with diabetic chronic kidney disease; E78.5 Hyperlipidemia, unspecified; E83.39 Other disorders of phosphorus metabolism; E87.1 Hypo-osmolality and hyponatremia; Z99.2 Dependence on renal dialysis; Z79.899 Other long term (current) drug therapy
CPT/HCPCS: 36415; 70450; 80048; 80053; 82140; 82962; 83880; 84132; 85025; 87081; 87340; 90935; 93005; 94644; 96374; G0378; J1815

== ENCOUNTER 2024-08-25 11:24 | Inpatient (IN) | payer MEDICAID, MEDICARE ==
[~2024-08-25] VITALS: Ht 182.9 cm; Wt 99.5 kg
[~2024-08-25 11:24] MED LIST: AML5T PO; CYCL-611 PO; HYDR-4072 PO; HYDR100T10 PO; INSU1INJ19 SC; LORA-1123 PO; OMEP1CAP70 PO; SEVE800T8 PO; ZOLP10TA6 PO
[2024-08-25 11:34] VITALS: PULSE 93; RESP 11; O2SAT 93
--- NOTE | 2024-08-25 11:35 | ED.PDOC ---
HPI Comments HPI: This is a 59 year old male MATTHEWA presenting to the ED with chief complaint of generalized weakness. EMS reports that the patient was in the middle of dialysis at [facility] when he started to experience nausea, generalized weakness, and a low grade fever, being stopped at 700cc's pulled from him. Patient relays that he last had a complete dialysis session on Thursday. Patient denies being on a water pull and he does not produce urine. EMS notes patient's systolic blood pressure dropped from 103 at the scene to 68 in the ED. Patient reports he currently has back pain, but this is a chronic issue. Patient denies any vomiting, diarrhea, abdominal pain, chest pain, SOB, or dizziness. Patient does not make any urine. Patient is not on diuretics. Initial Vitals BP: 64/34 HR: 95 RR: 18 O2 Sat: 90% Temp: 97.8F Past Medical history: ESRD, DM, HTN, chronic low back pain Past Surgical history: CABG Social History: Denies smoking, ETOH, and drug use. Allergies: NKDA HPI: Poor Historian. REVIEW OF SYSTEMS: CONSTITUTIONAL: Denies acute: fever, diaphoresis, chills, HEAD: Denies acute: headache, photophobia Eyes: Denies acute: Double vision, vision loss, eye pain, eye discharge. EARS: Denies acute: tinnitus, hearing loss, ear discharge, ear pain, THROAT: Denies acute: sore throat, swelling, difficulty swallowing , pain with swallowing, change in voice. NECK: Denies acute: neck pain, neck swelling, stiff neck. HEART: Denies acute : chest pain, palpitations, LUNGS: Denies acute: SOB, wheezing, cough, hemoptysis ABDOMEN: Denies acute: abdominal pain, Nausea, Vomiting, diarrhea, melena , hematemesis, hematochezia SKIN: Denies acute: rash, redness, lesions, itchiness. EXTREMITIES: Denies acute: calf pain, numbness, tingling, weakness, denies pain in extremity. Denies acute: Low back pain. Neuro: Denies acute: focal neurological deficit, motor or sensory focal neurological deficit, tremors, seizure like activity, confusion, dizziness, change in mental status, loss of bowel or bladder function, cauda equina like symptoms. : Denies acute: dysuria, hematuria, flank pain, increase in urinary frequency. PSYCH: Denies acute: hallucination, suicidal ideation, homicidal ideation. PHYSICAL EXAM: General: -----mild---acute distress, awake and alert. Head: normocephalic, atraumatic. Neck: supple, trachea is midline, no swelling. Throat: Normal phonation. Eyes:, no erythema, no purulent discharge, no proptosis, no icterus. Heart: regular rate, regular rhythm, no significant murmur appreciated. Lungs: no apparent respiratory distress, Able to speak in full sentences. No wheezing, no rhonchi, no crackles. No stridors Clear to auscultation bilaterally. Abdomen: non tender to palpation, slightly distended, soft, no guarding, no rebound, + bowel sounds. Neuro: Awake, Alert, oriented to name, self, situation, follows commands GCS=15. Speech is normal. Skin: no petechia, no purpura, no cyanosis, non-pale, not jaundice. Lower extremities: --raise bilateral - Pitting edema no deformity, no focal swelling, no calf TTP. Makes eye contact. moves all four extremities. Face: no apparent facial droop. ED COURSE: DISCLAIMER: This medical document was created using an electronic medical record system with voice recognition software and computerized dictation system. Although this document has been carefully reviewed, there might still be some phonetic and typographical errors. Occasional wrong-word or "sound-alike" substitutions may have occurred due to the inherent limitations of voice recognition software. The se areas are purely typographical due to imperfections of the software programs and do not reflect any compromise in the patient's medical care. Please read the chart carefully and recognize, using context, where these substitutions have occurred. Time Seen by MD: 11:29 Reviewed Notes: Medications, Allergies Allergies: Coded Allergies: NO KNOWN ALLERGIES (Unverified , 06/21/24) Home Meds Reported Medications Insulin Glargine (Basaglar Kwikpen) 100 Unit/Ml Inj, 60 UNIT SC DAILY 06/22/24 Hydrocodone-Acetaminophen (Hydrocodone/Acetaminophen 10-325 mg) 1 Tab Tab, 1 TAB PO Q4HPRN PRN for PAIN SCALE 7 THRU 10 06/22/24 Zolpidem Tartrate (Zolpidem Tartrate) 10 Mg Tab, 1 TAB PO QHSP PRN for FOR INSOMNIA 06/22/24 Lorazepam (Lorazepam) 1 Mg Tab, 1 MG PO BID PRN for ANXIETY 06/22/24 Amlodipine Besylate (NORVASC TABLET) 5 Mg Tb, 5 MG PO DAILY, TAB 06/22/24 Hydralazine Hcl (Hydralazine Hcl) 100 Mg Tab, 100 MG PO DAILY 06/22/24 Sevelamer Carbonate (Renvela) 800 Mg Tab, 800 MG PO, TAB TAKE 3 TO 5 TABLETS EACH MEAL. 06/22/24 Omeprazole (Omeprazole Dr) 20 Mg Cap, 1 CAP PO BID 06/22/24 Cyclobenzaprine HCl (Cyclobenzaprine Hydrochlo) 10 Mg Tab, 1 TAB PO BID 06/22/24 Information Source: Patient, Emergency Med Personnel Mode of Arrival: EMS Was a procedure done? Was a procedure done?: No X-Ray, Labs, Meds, VS Vital Signs Date Time Temp Pulse Resp B/P (MAP) Pulse Ox O2 Delivery O2 Flow Rate FiO2 08/25/24 14:30 92 13 83/48 (60) 96 08/25/24 13:59 100 18 98/57 (71) 92 08/25/24 13:00 101 19 104/60 (75) 97 08/25/24 12:45 101 21 103/62 (76) 98 08/25/24 12:30 99 18 97/51 (66) 96 08/25/24 12:27 96 25 104/50 (68) 96 08/25/24 12:20 95 14 89/44 (59) 95 08/25/24 12:00 94 17 85/45 (58) 93 08/25/24 11:42 97.8 93 18 64/34 (44) 90 97.8 08/25/24 11:34 97.8 93 11 64/34 (44) 93 97.8 08/25/24 11:34 93 11 93 Room Air* 0 21 08/25/24 11:29 95 Lab Test 08/25/24 14:23 08/25/24 13:56 08/25/24 12:02 08/25/24 11:49 Range/Units Lactic Acid Level 2.2 *H 2.4 *H 0.4-2.0 mmol/L POC Glucose 182 H 70-106 mg/dl Influenza Type A Antigen Negative Negative Influenza Type B Antigen Negative Negative SARS-CoV-2 Antigen (Rapid) Negative NEGATIVE White Blood Count 5.7 4.4-10.8 10^3/uL Red Blood Count 6.30 H 4.5-5.90 10^6/uL Hemoglobin 17.2 13.5-17.5 g/dL Hematocrit 53.6 H 41.0-53.0 % Mean Corpuscular Volume 85.1 80.0-100.0 fL Mean Corpuscular Hemoglobin 27.4 L 28.0-32.0 pg Mean Corpuscular Hemoglobin Concent 32.1 32.0-36.0 g/dL Red Cell Distribution Width 16.9 H 11.8-14.3 % Platelet Count 119 L 140-450 10^3/uL Mean Platelet Volume 8.5 6.9-10.8 fL Neutrophils (%) (Auto) 72.5 37.0-80.0 % Lymphocytes (%) (Auto) 12.1 10.0-50.0 % Monocytes (%) (Auto) 14.0 H 0.0-12.0 % Eosinophils (%) (Auto) 0.5 0.0-7.0 % Basophils (%) (Auto) 0.9 0.0-2.0 % Neutrophils # (Auto) 4.1 1.6-8.6 10 ^3/uL Lymphocytes # (Auto) 0.7 0.4-5.4 10 ^3/uL Monocytes # (Auto) 0.8 0-1.3 10 ^3/uL Eosinophils # (Auto) 0 0-0.8 10 ^3/uL Basophils # (Auto) 0.1 0-0.2 10 ^3/uL Nucleated Red Blood Cells 1.5 % Platelet Estimate Decreased Anisocytosis (manual) Slight Prothrombin Time 12.9 H 9.3-11.8 sec Prothrombin Time INR 1.24 H 0.9-1.15 Activated Partial Thromboplast Time 132.1 *H 24.5-34.5 SEC Sodium Level 135 L 136-145 mmol/L Potassium Level 5.3 H 3.5-5.1 mmol/L Chloride Level 99 98-107 mmol/L Carbon Dioxide Level 18 L 20-31 mmol/L Anion Gap 18 H 5-15 Blood Urea Nitrogen 39 H 9-23 mg/dL Creatinine 10.69 *H 0.700-1.30 mg/dL Glomerular Filtration Rate Calc 5 >90 mL/min BUN/Creatinine Ratio 3.6 L 10.0-20.0 Serum Glucose 137 H 74-106 mg/dL Calcium Level 9.2 8.7-10.4 mg/dL Total Bilirubin 0.4 0.2-1.0 mg/dL Aspartate Amino Transferase (AST) 12 L 13-40 U/L Alanine Aminotransferase (ALT) < 9 7-40 U/L Alkaline Phosphatase 341 H 46-116 U/L Troponin I High Sensitivity 21 </=54 ng/L Total Protein 6.4 5.7-8.2 g/dL Albumin 3.5 3.2-4.8 g/dL Current Medications Medications (Trade) Dose Ordered Sig/Jenae Route Start Time Stop Time Status Last Admin Sodium Chloride 500 ml @ 500 mls/hr Q1H ONCE IV 08/25/24 12:00 08/25/24 12:59 DC 08/25/24 12:06 Piperacillin Sod/ Tazobactam Sod 50 ml @ 50 mls/hr ONCE ONCE IV 08/25/24 13:00 08/25/24 13:59 DC 08/25/24 13:08 Ondansetron HCl (Zofran) 4 mg ONCE ONCE IV 08/25/24 13:30 08/25/24 13:31 DC 08/25/24 13:47 Acetaminophen/ Hydrocodone Bitart (Abie 5/325MG Tab) 1 tab ONCE ONCE PO 08/25/24 14:30 08/25/24 14:31 DC 08/25/24 14:34 [place] [address] Ph: [phone] DIAGNOSTIC IMAGING Diagnostic Imaging Report : [id number] Signed PATIENT: LULU SCOTT ACCT: [id number] UNIT: [id number] : 1965 [facility] AGE / SEX: 59 / M ADM STATUS: ADM IN SERVICE [id number] ORDERING PHYSICIAN: JOSH ARAMBULA DO PROCEDURE(s): ANGAC - ANGIO AORTIC ABDOMINAL REASON: Her peritoneal/peritoneal hematoma ORDER NUMBER(s): [id number], ACCESSION NUMBER(s): [id number] Indication: Her peritoneal/peritoneal hematoma Technique: CT axial images of the abdomen and pelvis are obtained with intravenous contrast. Coronal and sagittal reformats were obtained. Radiation Dose Information: CTDI volume is 25 mGy. Dose-length product is 1493 mGy*cm Comparison: None FINDINGS: Lung bases demonstrate 4 mm right lower lobe calcified nodule. Adrenal glands, spleen and pancreas unremarkable. No enhancing hepatic lesion. Bilateral renal extensive cystic disease. There is large right renal subcapsular hematoma measuring 7.9 x 5.1 by 10.9 cm, previously 6.4 by 4.6 x 9.9 cm. There is a large retroperitoneal hematoma /perinephric hematoma that appears increased in the interval. Hematoma extends into the right lower quadrant of the abdomen, right paracolic gutter. There is extensive calcification of the right r enal artery. Suboptimal characterization of the arterial circulation, within the limitations no definitive arterial extravasation seen. Stomach is partially distended. Small bowel loops are normal in caliber. Moderate volume stool in the colon. Normal appendix. Extensive abdominal aortic atherosclerotic disease. No retroperitoneal lymphadenopathy. Bladder contracted. No inguinal lymphadenopathy. Extensive osseous sclerotic changes consistent with renal osteodystrophy changes. Old L1 compression deformity with 30% loss height. Lytic changes of the bilateral SI joints, left femoral head and neck, likely sequela of renal osteodystrophy / hyperparathyroidism. Old left 8th, 9th rib fractures. IMPRESSION: Extensive right renal subcapsular hematoma and perinephric/retroperitoneal hematoma extending into the right lower quadrant of the abdomen, right paracolic gutter as described above which appears to have increased in size since the previous examination. Suboptimal characterization of the arterial circulation. Within the limitations, no no definitive arterial extravasation identified however again limited evaluation. Correlate for Page kidney given the right renal subcapsular hematoma. Extensive atherosclerotic disease. Renal cystic disease bilaterally. Sequela of renal osteodystrophy. Other findings as described. Critical Result: Retroperitoneal, perinephric / subcapsular hematoma Findings discussed with GEREMIAS MANLEY at 08/25/2024 04:28 PM, and acknowledged receipt and understanding of the findings. .. ATED BY: HOLLIE TIDWELL MD DICTATED DATE/TIME: 08/25/241628 SIGNED BY: HOLLIE TIDWELL MD SIGNED DATE/TIME: 08/25/241628 CC: [place] [id number] Ph: [phone] DIAGNOSTIC IMAGING Diagnostic Imaging Report : [id number] Signed PATIENT: LULU SCOTT ACCT: [id number] UNIT: [id number] : 1965 LOC: ER ROOM / BED: / AGE / SEX: 59 / M ADM STATUS: REG ER SERVICE 1312 ORDERING PHYSICIAN: JOSH ARAMBULA DO PROCEDURE(s): ABPL - CT AB PEL WO CON-NO ORAL OR IV REASON: ABDOMEN PAIN ORDER NUMBER(s): [id number], ACCESSION NUMBER(s): [id number] Exam: CT CT AB PEL WO CON-NO ORAL OR IV History: ABDOMEN PAIN Comparison Study: None Technique: Multidetector spiral CT of the abdomen was performed from lung bases to pubic symphysis. Imaging was performed without IV contrast. Axial, coronal and sagittal multiplanar reformats were obtained from the axial data set by the technologist. Radiation Dose : 1. Abdomen/Pelvis: CTDIvol 21 mGy, DLP 1198 mGy*cm. Findings: Evaluation of solid organs is limited due to lack of intravenous contrast use. Lung Bases: No acute or significant lung base finding. Normal heart size. No pleural or pericardial effusion. Liver: The liver is normal in size. No focal lesions. Gallbladder and Biliary Tree: Unremarkable Spleen: Unremarkable Pancreas: The pancreas is grossly normal in appearance. Adrenal Glands: Unremarkable Kidneys: Large right perirenal/ retroperitoneal hematoma which measures 7.1 x 15.4 cm. No hydronephrosis . Bladder: Grossly unremarkable for degree of distention. Bowel: The stomach is grossly normal in appearance. Small bowel and colon are normal in caliber and distribution. The appendix is not visualized; however, no secondary findings of acute appendicitis identified. Ascites: Absent Lymphadenopathy: No mesenteric, retroperitoneal or periportal lymphadenopathy. Abdominal Wall and Mesentery: Unremarkable. Vasculature: The visualized abdominal aorta is normal in size and caliber. Evaluation of abdominal and pelvic vessels is limited due to lack of intravenous contrast. Pelvic Organs: Unremarkable Musculoskeletal: No aggressive focal bony lesions, acute fractures or dislocation. IMPRESSION: 1. Large right perirenal/ retroperitoneal hematoma which measures 7.1 x 15.4 cm. No hydronephrosis . Consider CTA abdomen and pelvis to evaluate for acute arterial hemorrhage. Radiation optimization: All CT scans at this facility use at least one of these dose optimization techniques: automated exposure control mA and/or kV adjustment per patient size (includes targeted exams where dose is matched to clinical indication) or iterative reconstruction. ATED BY: OLGA MCFARLAND MD DICTATED DATE/TIME: 08/25/241415 SIGNED BY: OLGA MCFARLAND MD SIGNED DATE/TIME: 08/25/241415 CC: [place] [id number] Ph: [phone] DIAGNOSTIC IMAGING Diagnostic Imaging Report : [id number] Signed PATIENT: LULU SCOTT ACCT: [id number] UNIT: [id number] : 1965 LOC: ER ROOM / BED: / AGE / SEX: 59 / M ADM STATUS: REG ER SERVICE 28 ORDERING PHYSICIAN: JOSH ARAMBULA DO PROCEDURE(s): CXRP - CHEST PORTABLE REASON: low grade fever, hypotension ORDER NUMBER(s): [id number], ACCESSION NUMBER(s): [id number] CHEST RADIOGRAPH Indication: low grade fever, hypotension Technique: Single frontal view of the chest was obtained COMPARISON: None FINDINGS: Lines and Tubes: Median sternotomy. Tunneled right central venous catheter in satisfactory position. Lungs: Mild increased interstitial prominence Pleura: No effusion. No pneumothorax. Cardiomediastinal contours: Unremarkable Bones: Unremarkable IMPRESSION: Pulmonary vascular congestion versus viral pneumonia. ATED BY: ALEXANDRE SALAS MD DICTATED DATE/TIME: 08/25/241210 SIGNED BY: ALEXANDRE SALAS MD SIGNED DATE/TIME: 08/25/241210 CC: Images Reviewed?: Images reviewed and evaluated by ri Time of 1ST Reevaluation: 12:29 Reevaluation 1ST: Unchanged Time of 2ND Reevaluation: 16:05 (With the initial CT scan that shows the hematoma was never communicated to us of the critical findings. I incidentally found this report an hour and 20 minutes after it was read. I immediately contacted our interventional radiologist Dr. Ennis. I ordered a CT angiogram of abdomen and pelvis. He reviewed the CT scan and says he has no active bleeding. He suspects a ruptured cyst. He recommends H&H q.6 hours and admission to ICU and he will follow up with the patient tomorrow in consult. I communicated that to the admitting team as well ESTELA Manley. I will order some TXA meanwhile to stabilize the patient. Repeat H and H is still stable.) Time of 3RD Reevaluation: 20:10 (The case was discussed with the [facility] team (HPI, physical exam, labs and diagnostic tests that were available at the time of disposition, ED course, treatment plan) on the phone. They agreed to accepted the patient to their ER for higher level of care. This was done at the request of the medicine team who wants to transfer this patient. Accepting physician is Dr. Parrish. ) Patient Education/Counseling: Diagnosis, Treatment Family Education/Counseling: No Family Present Departure 1 Departure Time of Disposition: 12:21 Impression: Primary Impression: End-stage renal disease on hemodialysis Additional Impressions: Hypotension Retroperitoneal hematoma Disposition: ADMITTED INPATIENT Admit to: ICU Condition: Critical Discharged With: Self Critical Care Note Critical Care Time?: No Heart Score Heart Score: Heart Score Response (Comments) Value History Moderate Suspicious 1 EKG Normal 0 Age 45-64 1 Risk Factors >3 or Hx ASHD 2 Total 4 I personally scribed for JOHS ARAMBULA DO ([email or web address]) on 08/25/24 at 11:35. Electronically submitted by Ramirez Rios ([email or web address]). I personally scribed for JOSH ARAMBULA DO ([email or web address]) on 08/25/24 at 12:00. Electronically submitted by Ramirez Rios ([email or web address]). I personally scribed for JOSH ARAMBULA DO ([email or web address]) on 08/25/24 at 20:25. Electronically submitted by Ramirez Rios ([email or web address]). JOSH ARAMBULA DO Aug 25, 2024 11:35
[2024-08-25] MEDS: SODIUM CHLORIDE 0.9% 500 ML IV ONE (12:06)
[2024-08-25 12:10] LABS: Hemoglobin 17.2 g/dL (13.5-17.5)
[2024-08-25 12:13] LABS: Hematocrit 53.6 % (41.0-53.0); Mean Corpuscular Hemoglobin 27.4 pg (28.0-32.0); Mean Corpuscular Volume 85.1 fL (80.0-100.0); Nucleated Red Blood Cells % 1.5 %
--- NOTE | 2024-08-25 12:13 | DVH ---
CHEST RADIOGRAPH Indication: low grade fever, hypotension Technique: Single frontal view of the chest was obtained COMPARISON: None FINDINGS: Lines and Tubes: Median sternotomy. Tunneled right central venous catheter in satisfactory position. Lungs: Mild increased interstitial prominence Pleura: No effusion. No pneumothorax. Cardiomediastinal contours: Unremarkable Bones: Unremarkable IMPRESSION: Pulmonary vascular congestion versus viral pneumonia.
[2024-08-25 12:23] LABS: Anisocytosis Slight
[2024-08-25 12:31] LABS: Lactic Acid w/Reflex 2.4 mmol/L (0.4-2.0)
[2024-08-25 13:05] LABS: Anion Gap 18 (5-15)
[2024-08-25] MEDS: PIPERACILLIN-TAZOB 2.25GM 50 ML IV ONE (13:08)
[2024-08-25 13:10] LABS: BUN/Creatinine Ratio 3.6 (10.0-20.0); Carbon Dioxide 18 mmol/L (20-31); Chloride 99 mmol/L (98-107); Glucose 137 mg/dL (74-106); Potassium 5.3 mmol/L (3.5-5.1); Sodium 135 mmol/L (136-145)
[2024-08-25 13:11] LABS: Blood Urea Nitrogen 39 mg/dL (9-23); Calcium 9.2 mg/dL (8.7-10.4)
[2024-08-25 13:12] LABS: Alanine Aminotransferase < 9 U/L (7-40); Albumin 3.5 g/dL (3.2-4.8); Alkaline Phosphatase 341 U/L (46-116); Total Protein 6.4 g/dL (5.7-8.2)
[2024-08-25 13:13] LABS: Bilirubin, Total 0.4 mg/dL (0.2-1.0)
[2024-08-25 13:32] LABS: INR 1.24 (0.9-1.15); Prothrombin Time 12.9 sec (9.3-11.8)
[2024-08-25 13:33] LABS: COVID19 ANTIGEN SOFIA FIA NEGATIVE (NEGATIVE)
[2024-08-25 13:36] LABS: Partial Thromboplastin Time 132.1 SEC (24.5-34.5)
[2024-08-25] MEDS: ONDANSETRON HCL 4 MG/2 ML VIAL IV ONE (13:47)
--- NOTE | 2024-08-25 14:19 | DVH ---
Exam: CT CT AB PEL WO CON-NO ORAL OR IV History: ABDOMEN PAIN Comparison Study: None Technique: Multidetector spiral CT of the abdomen was performed from lung bases to pubic symphysis. Imaging was performed without IV contrast. Axial, coronal and sagittal multiplanar reformats were ob tained from the axial data set by the technologist. Radiation Dose : 1. Abdomen/Pelvis: CTDIvol 21 mGy, DLP 1198 mGy*cm. Findings: Evaluation of solid organs is limited due to lack of intravenous contrast use. Lung Bases: No acute or significant lung base finding. Normal heart size. No pleural or pericardial effusion. Liver: The liver is normal in size. No focal lesions. Gallbladder and Biliary Tree: Unremarkable Spleen: Unremarkable Pancreas: The pancreas is grossly normal in appearance. Adrenal Glands: Unremarkable Kidneys: Large right perirenal/ retroperitoneal hematoma which measures 7.1 x 15.4 cm. No hydronephro sis . Bladder: Grossly unremarkable for degree of distention. Bowel: The stomach is grossly normal in appearance. Small bowel and colon are normal in caliber and d istribution. The appendix is not visualized; however, no secondary findings of acute appendicitis id entified. Ascites: Absent Lymphadenopathy: No mesenteric, retroperitoneal or periportal lymphadenopathy. Abdominal Wall and Mesentery: Unremarkable. Vasculature: The visualized abdominal aorta is normal in size and caliber. Evaluation of abdominal a nd pelvic vessels is limited due to lack of intravenous contrast. Pelvic Organs: Unremarkable Musculoskeletal: No aggressive focal bony lesions, acute fractures or dislocation. IMPRESSION: 1. Large right perirenal/ retroperitoneal hematoma which measures 7.1 x 15.4 cm. No hydronephrosis . Consider CTA abdomen and pelvis to evaluate for acute arterial hemorrhage. Radiation optimization: All CT scans at this facility use at least one of these dose optimization tariq hniques: automated exposure control mA and/or kV adjustment per patient size (includes targeted exam s where dose is matched to clinical indication) or iterative reconstruction.
[2024-08-25] MEDS: HYDROcodone-ACET 5/325MG TAB PO ONE (14:34)
[2024-08-25] MEDS ORDERED: ACETAMINOPHEN 325 MG TAB PO PRN ×2 (14:45→16:30)
[2024-08-25] MEDS ORDERED: ONDANSETRON HCL 4 MG/2 ML VIAL IV PRN (14:45)
[2024-08-25] MEDS ORDERED: DEXTROSE (50%) 50ML SYRG IV PRN ×2 (14:45→16:30)
[2024-08-25] MEDS: ALBUMIN 5% 250 ML IV ONE (15:12)
[2024-08-25 15:53] LABS: Hematocrit 49.6 % (41.0-53.0); Hemoglobin 16.0 g/dL (13.5-17.5)
[2024-08-25] MEDS: IODIXANOL 320MG/ML 100ML BTL IV ONE (15:55)
[2024-08-25] MEDS: TRANEXAMIC ACID 1,000 MG in SODIUM CHL 0.9% 100 ML IV ONE (16:00)
[2024-08-25] MEDS: SODIUM CHLORIDE 0.9% 250 ML IV ONE (16:00)
[2024-08-25] MEDS ORDERED: SODIUM CHLORIDE 0.9% 250 ML IV ONE (16:00)
[2024-08-25] MEDS: SODIUM CHLORIDE 0.9% 1,000 ML IV ONE (16:00)
[2024-08-25] MEDS: SODIUM CHLORIDE 0.9% 1,000 ML IV SCH (16:00)
[2024-08-25] MEDS ORDERED: MORPHINE SULFATE INJ 2 MG/ml SYRG IV PRN (16:30)
[2024-08-25] MEDS ORDERED: HYDROcodone-ACET 5/325MG TAB PO PRN (16:30)
[2024-08-25] MEDS ORDERED: NITROGLYCERIN 0.4 MG SL TAB SL PRN (16:30)
--- NOTE | 2024-08-25 16:30 | DVH ---
Indication: Her peritoneal/peritoneal hematoma Technique: CT axial images of the abdomen and pelvis are obtained with intravenous contrast. Coronal and sagittal reformats were obtained. Radiation Dose Information: CTDI volume is 25 mGy. Dose-length product is 1493 mGy*cm Comparison: None FINDINGS: Lung bases demonstrate 4 mm right lower lobe calcified nodule. Adrenal glands, spleen and pancreas unremarkable. No enhancing hepatic lesion. Bilateral renal extensive cystic disease. There is large right renal subcapsular hematoma measuring 7.9 x 5.1 by 10.9 cm, previously 6.4 by 4.6 x 9.9 cm. There is a large retroperitoneal hematoma /renee nephric hematoma that appears increased in the interval. Hematoma extends into the right lower quadra nt of the abdomen, right paracolic gutter. There is extensive calcification of the right renal artery . Suboptimal characterization of the arterial circulation, within the limitations no definitive arter ial extravasation seen. Stomach is partially distended. Small bowel loops are normal in caliber. Moderate volume stool in the colon. Normal appendix. Extensive abdominal aortic atherosclerotic disease. No retroperitoneal lymphadenopathy. Bladder cont racted. No inguinal lymphadenopathy. Extensive osseous sclerotic changes consistent with renal osteodystrophy changes. Old L1 compression deformity with 30% loss height. Lytic changes of the bilateral SI joints, left femoral head and neck, likely sequela of renal osteodystrophy / hyperparathyroidism. Old left 8th, 9th rib fractures. IMPRESSION: Extensive right renal subcapsular hematoma and perinephric/retroperitoneal hematoma extending into th e right lower quadrant of the abdomen, right paracolic gutter as described above which appears to hav e increased in size since the previous examination. Suboptimal characterization of the arterial circulation. Within the limitations, no no definitive ar terial extravasation identified however again limited evaluation. Correlate for Page kidney given the right renal subcapsular hematoma. Extensive atherosclerotic disease. Renal cystic disease bilaterally. Sequela of renal osteodystrophy. Other findings as described. Critical Result: Retroperitoneal, perinephric / subcapsular hematoma Findings discussed with GEREMIAS MANLEY at 08/25/2024 04:28 PM, and acknowledged receipt and understandi ng of the findings. ..
[2024-08-25] MEDS ORDERED: InsuLIN REG 1unit/0.01ml Soln (100units/ml) SC SCH (17:00)
[2024-08-25] MEDS ORDERED: ACCU-CHEK COMFORT CURVE STRIP VI SCH (17:00)
[2024-08-25] MEDS: SODIUM ZIRCONIUM CYCL 10 GM PAK PO ONE (17:16)
[2024-08-25] MEDS: InsuLIN REG 1unit/0.01ml Soln (100units/ml) SC SCH (17:17)
[2024-08-25] MEDS: ACCU-CHEK COMFORT CURVE STRIP VI SCH (17:18)
[2024-08-25] MEDS: ONDANSETRON HCL 4 MG/2 ML VIAL IV PRN (17:29)
[2024-08-25] MEDS: MORPHINE SULFATE INJ 2 MG/ml SYRG IV ONE (17:30)
[2024-08-25] MEDS: SEVELAMER 800 MG TAB PO SCH (18:00)
[2024-08-25 19:07] LABS: Hemoglobin 14.6 g/dL (13.5-17.5)
[2024-08-25 19:09] LABS: Hematocrit 46.8 % (41.0-53.0)
--- NOTE | 2024-08-25 19:17 | DVHINCON2 ---
Date of service: Aug 25, 2024 Referring Physician Hospitalist/ER Reason for Consultation STAT Urology Consultation Regarding right perinephric hematoma History of Present Illness Patient is on hemodialysis for ESRD. He was hypotensive during dialysis today and was transferred to [facility] for admission. Currently vitals are stable according to the nursing staff. 59 year old male WILMER presenting to the ED with chief complaint of generalized weakness. EMS reports that the patient was in the middle of dialysis at [facility] when he started to experience nausea, generalized weakness, and a low grade fever, being stopped at 700cc's pulled from him. Patient relays that he last had a complete dialysis session on Thursday. Patient denies being on a water pull and he does not produce urine. EMS notes patient's systolic blood pressure dropped from 103 at the scene to 68 in the ED. Patient reports he currently has back pain, but this is a chronic issue. Patient denies any vomiting, diarrhea, abdominal pain, chest pain, SOB, or dizziness. Patient does not make any urine. Patient is not on diuretics. Initial Vitals BP: 64/34 HR: 95 RR: 18 O2 Sat: 90% Temp: 97.8F Past Medical History ESRD, DM, HTN, chronic low back pain Past Surgical History CABG Vascular access Family History: Diabetes mellitus G8 FATHER FH: heart attack G8 FATHER Allergies: Coded Allergies: NO KNOWN ALLERGIES (Unverified , 06/21/24) Home Meds Reported Medications Insulin Glargine (Basaglar Kwikpen) 100 Unit/Ml Inj, 60 UNIT SC DAILY 06/22/24 Hydrocodone-Acetaminophen (Hydrocodone/Acetaminophen 10-325 mg) 1 Tab Tab, 1 TAB PO Q4HPRN PRN for PAIN SCALE 7 THRU 10 06/22/24 Zolpidem Tartrate (Zolpidem Tartrate) 10 Mg Tab, 1 TAB PO QHSP PRN for FOR INSOMNIA 06/22/24 Lorazepam (Lorazepam) 1 Mg Tab, 1 MG PO BID PRN for ANXIETY 06/22/24 Amlodipine Besylate (NORVASC TABLET) 5 Mg Tb, 5 MG PO DAILY, TAB 06/22/24 Hydralazine Hcl (Hydralazine Hcl) 100 Mg Tab, 100 MG PO DAILY 06/22/24 Sevelamer Carbonate (Renvela) 800 Mg Tab, 800 MG PO, TAB TAKE 3 TO 5 TABLETS EACH MEAL. 06/22/24 Omeprazole (Omeprazole Dr) 20 Mg Cap, 1 CAP PO BID 06/22/24 Cyclobenzaprine HCl (Cyclobenzaprine Hydrochlo) 10 Mg Tab, 1 TAB PO BID 06/22/24 Current Medications Current Medications Medications (Trade) Dose Ordered Sig/Jenae Route PRN Reason Start Time Stop Time Status Last Admin Sevelamer HCl (Renagel) 800 mg TIDWM PO 08/25/24 18:00 Diagnostic Test (Pha) (Accu-Chek Comfort Curve T) 1 strip ACHS 08/25/24 17:00 08/25/24 16:38 DC Insulin Human Regular (InsuLIN R) ACHS SC 08/25/24 17:00 08/25/24 16:39 DC Dextrose 50 ml UD PRN IV Blood Sugar LESS THAN 60 08/25/24 14:45 08/25/24 16:38 DC Ondansetron HCl (Zofran) 4 mg Q4HP PRN IV NAUSEA / VOMITING 08/25/24 14:45 08/25/24 16:39 DC Acetaminophen (Tylenol Tablet) 650 mg Q6HP PRN PO PAIN SCALE 1-3 OR TEMP>100.4 08/25/24 14:45 08/25/24 16:38 DC Sodium Chloride 1,000 ml @ 200 mls/hr Q5H IV 08/25/24 16:00 08/25/24 16:46 DC 08/25/24 16:00 Diagnostic Test (Pha) (Accu-Chek Comfort Curve T) 1 strip ACHS 08/25/24 17:00 08/25/24 17:18 Insulin Human Regular (InsuLIN R) ACHS SC 08/25/24 17:00 08/25/24 17:17 Dextrose 50 ml UD PRN IV Blood Sugar LESS THAN 60 08/25/24 16:30 Acetaminophen/ Hydrocodone Bitart (Pitcher 5/325MG Tab) 1 tab Q4HP PRN PO MODERATE PAIN (4-6 PAIN SCALE) 08/25/24 16:30 Ondansetron HCl (Zofran) 4 mg Q4HP PRN IV NAUSEA / VOMITING 08/25/24 16:30 08/25/24 17:29 Acetaminophen (Tylenol Tablet) 650 mg Q6HP PRN PO PAIN SCALE 1-3 OR TEMP>100.4 08/25/24 16:30 Nitroglycerin (Ntrostat Sublingual) 0.4 mg Q5MINP PRN SL FOR CHEST PAIN 08/25/24 16:30 Morphine Sulfate 2 mg Q30M PRN IV FOR CHEST PAIN 08/25/24 16:30 Vital Signs Vital Signs Date Time Temp Pulse Resp B/P (MAP) Pulse Ox O2 Delivery O2 Flow Rate FiO2 08/25/24 19:00 98 10 115/66 (82) 98 08/25/24 11:42 97.8 97.8 08/25/24 11:34 Room Air* 0 21 Physical Exam AVSS Labs/Diagnostic Data Labs Test 08/25/24 18:54 08/25/24 14:23 08/25/24 13:56 08/25/24 12:02 Range/Units Lactic Acid Level 2.2 *H 0.4-2.0 mmol/L POC Glucose 182 H 70-106 mg/dl Influenza Type A Antigen Negative Negative Influenza Type B Antigen Negative Negative SARS-CoV-2 Antigen (Rapid) Negative NEGATIVE Test 08/25/24 11:49 Range/Units White Blood Count 5.7 4.4-10.8 10^3/uL Red Blood Count 6.30 H 4.5-5.90 10^6/uL Mean Corpuscular Volume 85.1 80.0-100.0 fL Mean Corpuscular Hemoglobin 27.4 L 28.0-32.0 pg Mean Corpuscular Hemoglobin Concent 32.1 32.0-36.0 g/dL Red Cell Distribution Width 16.9 H 11.8-14.3 % Platelet Count 119 L 140-450 10^3/uL Mean Platelet Volume 8.5 6.9-10.8 fL Neutrophils (%) (Auto) 72.5 37.0-80.0 % Lymphocytes (%) (Auto) 12.1 10.0-50.0 % Monocytes (%) (Auto) 14.0 H 0.0-12.0 % Eosinophils (%) (Auto) 0.5 0.0-7.0 % Basophils (%) (Auto) 0.9 0.0-2.0 % Neutrophils # (Auto) 4.1 1.6-8.6 10 ^3/uL Lymphocytes # (Auto) 0.7 0.4-5.4 10 ^3/uL Monocytes # (Auto) 0.8 0-1.3 10 ^3/uL Eosinophils # (Auto) 0 0-0.8 10 ^3/uL Basophils # (Auto) 0.1 0-0.2 10 ^3/uL Nucleated Red Blood Cells 1.5 % Platelet Estimate Decreased Anisocytosis (manual) Slight Prothrombin Time 12.9 H 9.3-11.8 sec Prothrombin Time INR 1.24 H 0.9-1.15 Activated Partial Thromboplast Time 132.1 *H 24.5-34.5 SEC Sodium Level 135 L 136-145 mmol/L Potassium Level 5.3 H 3.5-5.1 mmol/L Chloride Level 99 98-107 mmol/L Carbon Dioxide Level 18 L 20-31 mmol/L Anion Gap 18 H 5-15 Blood Urea Nitrogen 39 H 9-23 mg/dL Creatinine 10.69 *H 0.700-1.30 mg/dL Glomerular Filtration Rate Calc 5 >90 mL/min BUN/Creatinine Ratio 3.6 L 10.0-20.0 Serum Glucose 137 H 74-106 mg/dL Calcium Level 9.2 8.7-10.4 mg/dL Total Bilirubin 0.4 0.2-1.0 mg/dL Aspartate Amino Transferase (AST) 12 L 13-40 U/L Alanine Aminotransferase (ALT) < 9 7-40 U/L Alkaline Phosphatase 341 H 46-116 U/L Troponin I High Sensitivity 21 </=54 ng/L Total Protein 6.4 5.7-8.2 g/dL Albumin 3.5 3.2-4.8 g/dL PATIENT: LULU SCOTT ACCT: [id number] UNIT: [id number] : 1965 LOC: OVERFLOW ROOM / BED: [address] [place] [address] AGE / SEX: 59 / M ADM STATUS: ADM IN SERVICE [id number] ORDERING PHYSICIAN: JOSH ARAMBULA DO PROCEDURE(s): ANGAC - ANGIO AORTIC ABDOMINAL REASON: Her peritoneal/peritoneal hematoma ORDER NUMBER(s): [id number], ACCESSION NUMBER(s): [id number] Indication: Her peritoneal/peritoneal hematoma Technique: CT axial images of the abdomen and pelvis are obtained with intravenous contrast. Coronal and sagittal reformats were obtained. Radiation Dose Information: CTDI volume is 25 mGy. Dose-length product is 1493 mGy*cm Comparison: None FINDINGS: Lung bases demonstrate 4 mm right lower lobe calcified nodule. Adrenal glands, spleen and pancreas unremarkable. No enhancing hepatic lesion. Bilateral renal extensive cystic disease. There is large right renal subcapsular hematoma measuring 7.9 x 5.1 by 10.9 cm, previously 6.4 by 4.6 x 9.9 cm. There is a large retroperitoneal hematoma /perinephric hematoma that appears increased in the interval. Hematoma extends into the right lower quadrant of the abdomen, right paracolic gutter. There is extensive calcification of the right renal artery. Suboptimal characterization of the arterial circulation, within the limitations no definitive arterial extravasation seen. Stomach is partially distended. Small bowel loops are normal in caliber. Moderate volume stool in the colon. Normal appendix. Extensive abdominal aortic atherosclerotic disease. No retroperitoneal lymphadenopathy. Bladder contracted. No inguinal lymphadenopathy. Extensive osseous sclerotic changes consistent with renal osteodystrophy changes. Old L1 compression deformity with 30% loss height. Lytic changes of the bilateral SI joints, left femoral head and neck, likely sequela of renal o steodystrophy / hyperparathyroidism. Old left 8th, 9th rib fractures. IMPRESSION: Extensive right renal subcapsular hematoma and perinephric/retroperitoneal hematoma extending into the right lower quadrant of the abdomen, right paracolic gutter as described above which appears to have increased in size since the previous examination. Suboptimal characterization of the arterial circulation. Within the limitations, no no definitive arterial extravasation identified however again limited evaluation. Correlate for Page kidney given the right renal subcapsular hematoma. Extensive atherosclerotic disease. Renal cystic disease bilaterally. Sequela of renal osteodystrophy. Other findings as described. Critical Result: Retroperitoneal, perinephric / subcapsular hematoma Findings discussed with GEREMIAS MANLEY at 08/25/2024 04:28 PM, and acknowledged receipt and understanding of the findings. .. ATED BY: HOLLIE TIDWELL MD DICTATED DATE/TIME: 08/25/241628 SIGNED BY: HOLLIE TIDWELL MD SIGNED DATE/TIME: 08/25/241628 CC: Assessment Right retroperitoneal hematoma Right subcapsular hematoma Plan/Recommendation Consult IR service for embolization of right renal artery if feasible Strict bedrest with BRP Plan discussed with: Other ROSA,BLANCA S MD Aug 25, 2024 19:17
[2024-08-25 19:22] VITALS: PULSE 96; RESP 12; O2SAT 99
[2024-08-25] MEDS: fentaNYL CITRATE 100 MCG/2 ML VL IV ONE (20:20)
[2024-08-25 21:10] VITALS: BP 109/37; PULSE 111; RESP 17; TEMP 98; O2SAT 97
--- NOTE | 2024-08-26 07:16 | ECG ---
[facility] Test Date: 2024-08-25 Test Time: 11:29:36 Pat Name: LULU SCOTT Department: ED Room: [address] [place] [address] Gender: M Analyst Sales: evie : 1965 Requested By: JOSH ARAMBULA Order Number: [id number] Reading MD: Measurements Intervals [place] Rate: 95 P: 69 MI: 147 QRS: 128 QRSD: 105 T: 64 QT: 382 QTc: 481 Interpretive Statements Sinus rhythm Atrial premature complex Probable left atrial enlargement Inferior infarct, old Anterior infarct, old Baseline wander in lead(s) III,V4 Please click the below link to view image of tracing.
== END 2024-08-25 21:12 | disposition short-term general hospital (02) | DRG 371 ==
LOC: EDBD 11:24 → ER 11:24 → EDUNIT# 11:24 → OVERFLOW 14:35
PROVIDERS: ADMIT Nurse Practitioner; ATTEND Nurse Practitioner
DX: K68.3 Retroperitoneal hematoma (principal); N18.6 End stage renal disease; I12.0 Hypertensive chronic kidney disease with stage 5 chronic kidney disease or end stage renal disease; I95.3 Hypotension of hemodialysis; Z99.2 Dependence on renal dialysis; E11.22 Type 2 diabetes mellitus with diabetic chronic kidney disease; Z20.822 Contact with and (suspected) exposure to COVID-19; M54.50 Low back pain, unspecified; G89.29 Other chronic pain; Z95.1 Presence of aortocoronary bypass graft; Z83.3 Family history of diabetes mellitus; Z82.49 Family history of ischemic heart disease and other diseases of the circulatory system
CPT/HCPCS: 36415; 71045; 74175; 74176; 80053; 82962; 83605; 84484; 85014; 85018; 85025; 85610; 85730; 86850; 86900; 86901; 86920; 87040; 87426; 87804; 93005; 96365; G0378; J1815; J2405; J2543; Q9967